=== PATIENT | male | born 1940 | race Hispanic/Latino ===

== ENCOUNTER 2019-08-26 16:22 | Emergency (ER) | payer MEDICARE ==
--- NOTE | 2019-08-26 17:36 | Emergency Department Note ---
History of Present Illnes History of Present Illness Chief Complaint: COVID PUI History of Present Illness This is a 78 year old male PATIENT IN FROM HOME WITH COMPLAINTS OF FEVER, MUSCLE ACHES, AND DIARRHEA X 1 WEEK; STATES THAT HE HAD COVID TESTING ON 08/20/2019 BUT HAS NOT GOTTEN THE RESULTS YET. PATIENT CALLED FOR RESULTS TODAY, AND DAUGHTER TOLD THEM HE HAD A "106" FEVER AND WAS TOLD TO COME TO THE ER - PATIENT TEMP ACTUALLY 100.6, AND 99.8 DURING TRIAGE. Historian: Patient, Family Member Arrival Mode: Car Electro Mechanical Technician Required: No Onset (how long ago): week(s) (1) Location: ALL OVER Quality: ACHY Radiation: Reports non-radiation Severity: moderate Onset quality: gradual Timing of current episode: intermittent Progression: waxing and waning Chronicity: new Context: Denies recent illness Relieving factors: none Exacerbating factors: none Associated symptoms: Reports denies other symptoms Past Medical/Family History Physician Review I have reviewed the patient's past medical and family history. Any updates have been documented here. Past Medical History Recent Fever: Yes Clinical Suspicion of Infectio: Yes New/Unexplained Change in Ment: No Past Medical History: Hypertension Past Surgical History: Cataract Removal Other Surgery: TURP Social History Smoking Cessation: Never Smoker Counseling Performed: No Alcohol Use: None Any Illegal Drug Use: No TB Exposure/Symptoms: No Physically hurt or threatened: No Family History Family history of heart diseas: No Other Last Tetanus: UNKNOWN Review of Systems Review of Systems Constitutional: Reports as per HPI EENTM: Reports no symptoms Cardiovascular: Reports no symptoms Respiratory: Reports as per HPI Gastrointestinal: Reports no symptoms Genitourinary: Reports no symptoms Musculoskeletal: Reports no symptoms Integumentary: Reports no symptoms Neurological: Reports no symptoms Psychological: Reports no symptoms Endocrine: Reports no symptoms Hematological/Lymphatic: Reports no symptoms Physical Exam Related Data Allergies: Coded Allergies: No Known Allergies (Unverified , 08/26/19) Triage Vital Signs Vital Signs Date Time Temp Pulse Resp B/P (MAP) Pulse Ox O2 Delivery O2 Flow Rate FiO2 08/26/19 16:43 99.8 60 18 179/76 98 Vital signs reviewed: Yes Physical Exam CONSTITUTIONAL Constitutional: Present well-developed, Present well-nourished HENT HENT: Present normocephalic, Present atraumatic, Present oropharynx clear/moist, Present nose normal HENT L/R: Present left ext ear normal, Present right ext ear normal EYES Eyes: Reports PERRL, Reports conjunctivae normal NECK Neck: Present ROM normal PULMONARY Pulmonary: Present effort normal, Present breath sounds normal CARDIOVASCULAR Cardiovascular: Present regular rhythm, Present heart sounds normal, Present capillary refill normal, Present normal rate GASTROINTESTINAL Abdominal: Present soft, Present nontender, Present bowel sounds normal GENITOURINARY Genitourinary: Present exam deferred SKIN Skin: Present warm, Present dry MUSCULOSKELETAL Musculoskeletal: Present ROM normal NEUROLOGICAL Neurological: Present alert, Present oriented x 3, Present no gross motor or sensory deficits PSYCHOLOGICAL Psychological: Present mood/affect normal, Present judgement normal Assessment & Plan Medical Decision Making MDM PT WITH NO DISTRESS, O2 SAT 98% ON RA, NORMAL VS'S. PT TO F/U WITH TESTING CENTER, SELF-QUARANTINE, PRONING, F/U PCP Assessment & Plan Final Impression: (1) Viral syndrome Depart Disposition: HOME, SELF-CARE Last Vital Signs Date Time Temp Pulse Resp B/P (MAP) Pulse Ox O2 Delivery O2 Flow Rate FiO2 08/26/19 16:43 99.8 60 18 179/76 98 NASEEM LUKE MD Aug 26, 2019 17:35
== END 2019-08-26 17:00 | disposition home or self-care (01) ==
LOC: ER 16:22
DX: R50.9 Fever, unspecified (principal); R19.7 Diarrhea, unspecified; B34.9 Viral infection, unspecified; I10 Essential (primary) hypertension
CPT/HCPCS: 99282

== ENCOUNTER 2019-09-06 17:38 | Inpatient (IN) | payer MEDICARE, OTHER ==
[~2019-09-06] VITALS: Ht 162.6 cm; Wt 64.4 kg
[~2019-09-06 17:38] MED LIST: ETOMIDATE 2 MG/ML 10 ML INJ IV ONE; MIDAZOLAM HCL 2 MG/2 ML VIAL ONE; SUCCINYLCHOLINE CHLORIDE 20 MG/ML 10ML VIAL ONE
[2019-09-06] MEDS ORDERED: SODIUM CHLORIDE 0.9% 1000ML 1,000 ML IV STA (18:31)
[2019-09-06] MEDS ORDERED: AZITHROMYCIN 500MG/NS 250 ML 250 ML IV ONE (18:45)
[2019-09-06] MEDS ORDERED: CEFTRIAXONE SOD 1 GM/NS 50 ML 50 ML IV ONE (18:45)
[2019-09-06 18:55] LABS: BASOPHILS # (AUTO) 0.1 (0.0-0.1); BASOPHILS % 0.3 % (0.0-1.0); EOSINOPHILS # (AUTO) 0.1 (0.0-0.4); EOSINOPHILS % 0.4 % (0.0-6.0); HEMATOCRIT 39.9 % (38.2-49.6); HEMOGLOBIN 12.9 g/dL (14.0-18.0); LYMPHOCYTES # (AUTO) 1.1 (1.0-3.2); MEAN CORPUSCULAR HEMOGLOBIN 26.5 pg (28-32); MEAN CORPUSCULAR HGB CONC 32.3 g/dL (31-35); MEAN CORPUSCULAR VOLUME 81.9 fL (81-99); MONOCYTES # (AUTO) 0.9 (0.2-0.8); MONOCYTES % 5.5 % (4.4-11.3); NEUTROPHILS # (AUTO) 12.9 (2.1-6.9); NEUTROPHILS % 83.9 % (38.7-80.0); PLATELET COUNT 229 x10e3/uL (140-360); RED BLOOD COUNT 4.87 x10e6/uL (4.3-5.7); RED CELL DISTRIBUTION WIDTH 13.2 % (11.7-14.4)
[2019-09-06 19:01] LABS: INR 1.04; PROTHROMBIN TIME 14.2 seconds (11.9-14.5)
[2019-09-06 19:02] LABS: PARTIAL THROMBOPLASTIN TIME 38.3 seconds (23.8-35.5)
--- NOTE | 2019-09-06 19:03 | Emergency Department Note ---
History of Present Illnes History of Present Illness Chief Complaint: COVID PUI History of Present Illness This is a 79 year old male with 5 day h/o of fever, GRIFFITH, cough and myalgias Historian: Patient, Family Member Arrival Mode: Car History limited by: language barrier Onset (how long ago): day(s) (5) Location: DIFFUSE BODY ACHES Severity: moderate Duration (how long): day(s) (5) Timing of current episode: constant Progression: worsening Context: Reports recent illness Relieving factors: none Exacerbating factors: none Associated symptoms: Reports fever/chills, Reports headaches, Reports malaise Treatments prior to arrival: none Past Medical/Family History Physician Review I have reviewed the patient's past medical and family history. Any updates have been documented here. Past Medical History Recent Fever: Yes Clinical Suspicion of Infectio: Yes New/Unexplained Change in Ment: No Past Medical History: Hypertension Past Surgical History: Cataract Removal Other Surgery: TURP Social History Smoking Cessation: Unknown if ever smoked Counseling Performed: No Alcohol Use: None Any Illegal Drug Use: No Other Any Pre-Existing Lines (PICC,: No Review of Systems Review of Systems Constitutional: Reports fever, Reports malaise, Reports weakness EENTM: Reports no symptoms Cardiovascular: Reports no symptoms Respiratory: Reports dyspnea Gastrointestinal: Reports no symptoms Genitourinary: Reports no symptoms Musculoskeletal: Reports no symptoms Integumentary: Reports no symptoms Neurological: Reports headache Psychological: Reports no symptoms Endocrine: Reports no symptoms Hematological/Lymphatic: Reports no symptoms Physical Exam Related Data Allergies: Coded Allergies: No Known Allergies (Unverified , 08/26/19) Triage Vital Signs Vital Signs Date Time Temp Pulse Resp B/P (MAP) Pulse Ox O2 Delivery O2 Flow Rate FiO2 09/06/19 17:43 98.4 67 16 146/58 88 Room Air Vital signs reviewed: Yes Physical Exam CONSTITUTIONAL Constitutional: Present well-developed, Present well-nourished, Present ill appearing HENT HENT: Present normocephalic, Present atraumatic, Present oropharynx clear/moist, Present nose normal HENT L/R: Present left ext ear normal, Present right ext ear normal EYES Eyes: Reports PERRL, Reports conjunctivae normal NECK Neck: Present ROM normal PULMONARY Pulmonary: Present effort normal, Present breath sounds normal CARDIOVASCULAR Cardiovascular: Present regular rhythm, Present heart sounds normal, Present capillary refill normal, Present normal rate GASTROINTESTINAL Abdominal: Present soft, Present nontender, Present bowel sounds normal GENITOURINARY Genitourinary: Present exam deferred SKIN Skin: Present warm, Present dry MUSCULOSKELETAL Musculoskeletal: Present ROM normal NEUROLOGICAL Neurological: Present alert, Present oriented x 3, Present no gross motor or sensory deficits PSYCHOLOGICAL Psychological: Present mood/affect normal, Present judgement normal Results Laboratory Result Diagram: 09/06/19 1847 Laboratory Laboratory Tests Test 09/06/19 18:45 09/06/19 18:30 White Blood Count 15.38 x10e3/uL (4.8-10.8) Red Blood Count 4.87 x10e6/uL (4.3-5.7) Hemoglobin 12.9 g/dL (14.0-18.0) Hematocrit 39.9 % (38.2-49.6) Mean Corpuscular Volume 81.9 fL (81-99) Mean Corpuscular Hemoglobin 26.5 pg (28-32) Mean Corpuscular Hemoglobin Concent 32.3 g/dL (31-35) Red Cell Distribution Width 13.2 % (11.7-14.4) Platelet Count 229 x10e3/uL (140-360) Neutrophils (%) (Auto) 83.9 % (38.7-80.0) Lymphocytes (%) (Auto) 7.0 % (18.0-39.1) Monocytes (%) (Auto) 5.5 % (4.4-11.3) Eosinophils (%) (Auto) 0.4 % (0.0-6.0) Basophils (%) (Auto) 0.3 % (0.0-1.0) Neutrophils # (Auto) 12.9 (2.1-6.9) Lymphocytes # (Auto) 1.1 (1.0-3.2) Monocytes # (Auto) 0.9 (0.2-0.8) Eosinophils # (Auto) 0.1 (0.0-0.4) Basophils # (Auto) 0.1 (0.0-0.1) Absolute Immature Granulocyte (auto 0.44 x10e3/uL (0-0.1) Prothrombin Time 14.2 seconds (11.9-14.5) Prothromb Time International Ratio 1.04 Activated Partial Thromboplast Time 38.3 seconds (23.8-35.5) Sodium Level 136 mmol/L (136-145) Potassium Level 3.1 mmol/L (3.5-5.1) Chloride Level 94 mmol/L (98-107) Carbon Dioxide Level 29 mmol/L (22-29) Anion Gap 16.1 mmol/L (8-16) Blood Urea Nitrogen 17 mg/dL (7-26) Creatinine 0.87 mg/dL (0.72-1.25) Estimat Glomerular Filtration Rate > 60 ML/MIN (60-) BUN/Creatinine Ratio 20 (6-25) Glucose Level 134 mg/dL (74-118) Lactic Acid Level 1.3 mmol/L (0.5-2.0) Calcium Level 9.3 mg/dL (8.4-10.2) Total Bilirubin 0.4 mg/dL (0.2-1.2) Aspartate Amino Transf (AST/SGOT) 63 IU/L (5-34) Alanine Aminotransferase (ALT/SGPT) 33 IU/L (0-55) Alkaline Phosphatase 118 IU/L (40-150) Creatine Kinase 36 IU/L (30-200) Creatine Kinase MB 1.30 ng/mL (0-5.0) Troponin I 0.013 ng/mL (0-0.300) B-Type Natriuretic Peptide 80.9 pg/mL (0-100) Total Protein 7.8 g/dL (6.5-8.1) Albumin 3.0 g/dL (3.5-5.0) Globulin 4.8 g/dL (2.3-3.5) Albumin/Globulin Ratio 0.6 (0.8-2.0) Laboratory Tests Test 09/06/19 18:45 09/06/19 18:30 White Blood Count 15.38 x10e3/uL (4.8-10.8) Red Blood Count 4.87 x10e6/uL (4.3-5.7) Hemoglobin 12.9 g/dL (14.0-18.0) Hematocrit 39.9 % (38.2-49.6) Mean Corpuscular Volume 81.9 fL (81-99) Mean Corpuscular Hemoglobin 26.5 pg (28-32) Mean Corpuscular Hemoglobin Concent 32.3 g/dL (31-35) Red Cell Distribution Width 13.2 % (11.7-14.4) Platelet Count 229 x10e3/uL (140-360) Neutrophils (%) (Auto) 83.9 % (38.7-80.0) Lymphocytes (%) (Auto) 7.0 % (18.0-39.1) Monocytes (%) (Auto) 5.5 % (4.4-11.3) Eosinophils (%) (Auto) 0.4 % (0.0-6.0) Basophils (%) (Auto) 0.3 % (0.0-1.0) Neutrophils # (Auto) 12.9 (2.1-6.9) Lymphocytes # (Auto) 1.1 (1.0-3.2) Monocytes # (Auto) 0.9 (0.2-0.8) Eosinophils # (Auto) 0.1 (0.0-0.4) Basophils # (Auto) 0.1 (0.0-0.1) Absolute Immature Granulocyte (auto 0.44 x10e3/uL (0-0.1) Imaging Imaging results reviewed: Yes Impressions [place] [address] Patient Name: SHERLYN THOMAS MR #: [id number] : 1940 Age/Sex: 79/M Req #: [id number] Adm Physician: Ordered by: NASEEM LUKE MD Report #: [id number] Location: ER Room/Bed: Procedure: [id number] DX/CHEST SINGLE (PORTABLE) Exam Date: Exam Time: REPORT STATUS: Signed EXAMINATION: CHEST SINGLE (PORTABLE) INDICATION: ^Y ^COUGH, SOB, COVID COMPARISON: None FINDINGS: AP view TUBES and LINES: None. LUNGS: Patchy airspace opacities throughout both lungs. PLEURA: No pleural effusion or pneumothorax. HEART AND MEDIASTINUM: The cardiomediastinal silhouette is unremarkable. BONES AND SOFT TISSUES: No acute osseous lesion. Soft tissues are unremarkable. UPPER ABDOMEN: No free air under the diaphragm. IMPRESSION: Patchy pulmonary airspace disease consistent with provided history of viral pneumonia. Signed by: Hollie iMller MD on 09/06/2019 8:46 PM Dictated By: HOLLIE MILLER MD 45 Transcribed By: FLORECITA on 09/06/192045 COPY TO: NASEEM LUKE MD~ Critical Care Time Total Critical Care Time (min): 31 Critcal care necessary due to: respiratory failure Critcal care time spent by me: develop tx plan w patient/surrogate, examination of patient, order/perform tx or interventions, order/review laboratory studies, order/review radiographic studies, pulse oximetry Assessment & Plan Medical Decision Making MDM 79 yom presents with dyspea and hypoxia. Diff Dx : PE, PTX, CHF, Sepsis, COVID- 19 URI infection, ACS, ARDS, airway obstruction, Lung CA. Plan to admit for oxygen monitoring for COVID-19 infection Assessment & Plan Final Impression: (1) Upper respiratory tract infection due to COVID-19 virus (2) Hypoxia Depart Disposition: ADMITTED Last Vital Signs Date Time Temp Pulse Resp B/P (MAP) Pulse Ox O2 Delivery O2 Flow Rate FiO2 09/06/19 18:48 57 16 128/77 100 09/06/19 17:43 98.4 Room Air Home Meds Unable to Obtain Active Prescriptions or Reported Meds Medications in the ED Sodium Chloride 1,000 ml @ 0 mls/hr Q0M STAT IV ; Start 09/06/19 at 18:31; Stop 09/06/19 at 18:34; Status DC Ceftriaxone Sodium 50 ml @ 100 mls/hr ONCE ONCE IV ; Start 09/06/19 at 18:45; Stop 20 at 19:14 Azithromycin 250 ml @ 200 mls/hr NOW ONCE IV ; Start 20 at 18:45; Stop 20 at 19:59 KATHY LONDON DO Sep 06, 2019 19:03
[2019-09-06 19:11] LABS: ALANINE AMINOTRANSFERASE 33 IU/L (0-55); ALBUMIN/GLOBULIN RATIO 0.6 (0.8-2.0); ALKALINE PHOSPHATASE 118 IU/L (40-150); ANION GAP 16.1 mmol/L (8-16); BLOOD UREA NITROGEN 17 mg/dL (7-26); BUN/CREATININE RATIO 20 (6-25); CALCIUM 9.3 mg/dL (8.4-10.2); CARBON DIOXIDE 29 mmol/L (22-29); CHLORIDE 94 mmol/L (98-107); CREATINE KINASE 36 IU/L (30-200); CREATININE, SERUM 0.87 mg/dL (0.72-1.25); EST GLOMERULAR FILTRATION RATE > 60 ML/MIN (60-); GLUCOSE 134 mg/dL (74-118); POTASSIUM 3.1 mmol/L (3.5-5.1); SODIUM 136 mmol/L (136-145)
[2019-09-06 19:19] LABS: B-TYPE NATRIURETIC PEPTIDE2 80.9 pg/mL (0-100)
--- NOTE | 2019-09-06 20:49 | Diagnostic Imaging Report ---
EXAMINATION: CHEST SINGLE (PORTABLE) INDICATION: ^Y ^COUGH, SOB, COVID COMPARISON: None FINDINGS: AP view TUBES and LINES: None. LUNGS: Patchy airspace opacities throughout both lungs. PLEURA: No pleural effusion or pneumothorax. HEART AND MEDIASTINUM: The cardiomediastinal silhouette is unremarkable. BONES AND SOFT TISSUES: No acute osseous lesion. Soft tissues are unremarkable. UPPER ABDOMEN: No free air under the diaphragm. IMPRESSION: Patchy pulmonary airspace disease consistent with provided history of viral pneumonia. Signed by: Hayden Mendoza MD on 09/06/2019 8:46 PM
[2019-09-07] VITALS (8 sets, daily range): BP systolic 134–186; BP diastolic 60–67
--- NOTE | 2019-09-07 | NUR ---
patient is a new admit that arrived via stretcher. patient is awake and talking. patient has been assisted into the bed. bed is in the lowest position and call light is within reach. will continue to monitor patient.
[2019-09-07] MEDS ORDERED: SODIUM CHLORIDE 0.9% 1000ML 1,000 ML ONE (00:08)
[2019-09-07] MEDS ORDERED: AZITHROMYCIN 500MG/NS 250 ML 250 ML ONE (00:09)
[2019-09-07] MEDS ORDERED: CEFEPIME 1GM/NS 0.9% 50 ML 50 ML IV ONE (00:09)
[2019-09-07 05:35] LABS: BASOPHILS # (AUTO) 0.1 (0.0-0.1); BASOPHILS % 0.4 % (0.0-1.0); EOSINOPHILS # (AUTO) 0.2 (0.0-0.4); EOSINOPHILS % 1.2 % (0.0-6.0); HEMATOCRIT 39.5 % (38.2-49.6); HEMOGLOBIN 12.6 g/dL (14.0-18.0); LYMPHOCYTES # (AUTO) 1.3 (1.0-3.2); LYMPHOCYTES % 10.3 % (18.0-39.1); MEAN CORPUSCULAR HEMOGLOBIN 26.6 pg (28-32); MEAN CORPUSCULAR HGB CONC 31.9 g/dL (31-35); MEAN CORPUSCULAR VOLUME 83.3 fL (81-99); MONOCYTES % 8.2 % (4.4-11.3); NEUTROPHILS # (AUTO) 9.4 (2.1-6.9); NEUTROPHILS % 76.2 % (38.7-80.0); PLATELET COUNT 211 x10e3/uL (140-360); RED BLOOD COUNT 4.74 x10e6/uL (4.3-5.7); RED CELL DISTRIBUTION WIDTH 13.3 % (11.7-14.4)
[2019-09-07 06:01] LABS: ALANINE AMINOTRANSFERASE 29 IU/L (0-55); ALBUMIN 2.7 g/dL (3.5-5.0); ALBUMIN/GLOBULIN RATIO 0.6 (0.8-2.0); ALKALINE PHOSPHATASE 104 IU/L (40-150); ANION GAP 14.8 mmol/L (8-16); BLOOD UREA NITROGEN 13 mg/dL (7-26); BUN/CREATININE RATIO 17 (6-25); CALCIUM 8.9 mg/dL (8.4-10.2); CARBON DIOXIDE 29 mmol/L (22-29); CHLORIDE 100 mmol/L (98-107); CREATININE, SERUM 0.77 mg/dL (0.72-1.25); EST GLOMERULAR FILTRATION RATE > 60 ML/MIN (60-); GLUCOSE 97 mg/dL (74-118); POTASSIUM 3.8 mmol/L (3.5-5.1); SODIUM 140 mmol/L (136-145)
--- NOTE | 2019-09-07 07:11 | NUR ---
patient is resting in the bed. bed is in the lowest position and call light is within reach.
--- NOTE | 2019-09-07 07:52 | NUR ---
PATIENT IN BED RESTING WITH NO S/S OF DISTRESS. O2 IN PLACE VIA N/C. DENIED PAIN AT THIS TIME. BED IN LOWER POSITION, CALL LIGHT AT REACH.
[2019-09-07] MEDS ORDERED: IPRATROPIUM BROMIDE INHALER 12.9 GM INH INH PRN (09:00)
[2019-09-07] MEDS ORDERED: ALBUTEROL SULFATE HFA 8GM INHALATION AEROSOL INH PRN (09:00)
[2019-09-07] MEDS ORDERED: DEXAMETHASONE SOD PHOS INJ 4 MG/ML VIAL IV SCH (09:00)
--- NOTE | 2019-09-07 09:34 | History and Physical ---
CHIEF COMPLAINT: Fever, headaches, cough, and generalized body ache and pain for the past week. The patient came to the hospital for evaluation. HISTORY OF PRESENT ILLNESS: The patient is a 79-year-old male, has hypertension and history of enlarged prostate with previous TURP, came into the hospital with increasing shortness of breath and headaches along with fever and body ache and pain for the past five days. The patient came in, brought in by family. The patient has also had diffuse generalized weakness. The patient is admitted. He had test positive for COVID-19 viral. His WBC was 15.3,000. The patient also has low sodium level in the emergency room. The patient is admitted. The coronavirus PCR is positive for infection. PAST MEDICAL HISTORY: Hypertension, enlarged prostate, status post TURP. SOCIAL HISTORY: The patient does not smoke or use alcohol. No regular drugs. ALLERGIES: TO NO KNOWN ALLERGIES. HOME MEDICATIONS: List is not yet available. PHYSICAL EXAMINATION: VITAL SIGNS: Temperature is 97, currently, blood pressure 178/60, pulse rate is 67, respirations 22. GENERAL: The patient is not in acute distress. HEENT: Normocephalic and atraumatic. Pupils reactive. Anicteric. NECK: Supple grossly. PULMONARY: Diminished breath sounds bilaterally with coarses at the bases. CARDIOVASCULAR: S1, S2. Regular rate and rhythm. ABDOMEN: Soft. Positive bowel sounds. Grossly nontender, non-distention. EXTREMITIES: No gross cyanosis or edema. NEUROLOGIC: No gross focal deficit. LABORATORY DATA: WBC is 15.4, hemoglobin 12.9, hematocrit 39.9, and platelets is 229. Chemistry; sodium 136, potassium 3.1, chloride 94, bicarb 29, BUN is 17 and creatinine is 0.8, glucose is 134. Coagulation INR is 1.09. Serology rapid test, coronavirus PCR positive. Chest x-ray show patchy pulmonary airspace disease consistent with viral pneumonia. IMPRESSION: 1. COVID-19 pneumonia associated with respiratory insufficiency/respiratory failure. 2. Sepsis without shock. 3. Possible superimposed pneumonia. 4. Leukocytosis. 5. Hypertensive urgency. PLAN: Control blood pressure. Steroids. COVID-19 pneumonia treatment protocol. Consultation with Dr. Rock Merrill and Dr. Kashmir Long. The patient will be watched very carefully on oxygen support. MD FRANC Brock/ALE /[id number]
[2019-09-07] MEDS ORDERED: NIFEDIPINE CR 30 MG TAB PO ONE (10:00)
[2019-09-07] MEDS: ASCORBIC ACID 500 MG TAB PO SCH ×2 (10:05→17:11)
[2019-09-07] MEDS: LISINOPRIL 2.5 MG TAB PO SCH ×2 (10:05→17:12)
[2019-09-07] MEDS: CHOLECALCIFEROL 400 UNIT TAB PO SCH (10:05)
[2019-09-07] MEDS: ZINC SULFATE 220 MG CAP PO SCH ×2 (10:05→17:11)
[2019-09-07] MEDS: DEXAMETHASONE PHOS 4MG/ML 5ML MULTIDOSE VIAL IV SCH (10:45)
--- NOTE | 2019-09-07 11:01 | NUR ---
MD IN TO SEE PATIENT. NOTIFIED OF PATIENT ELEVATED B/P. NEW ORDER RECEIVED AND IMPLEMENTED. WILL CLOSELY MONITOR.
[2019-09-07] MEDS: HYDRALAZINE HCL 20 MG/ML VIAL IV PRN (12:13)
--- NOTE | 2019-09-07 13:20 | NUR ---
PATIENT NOTED WITH B/P OF 174/67. PRN HYDRALAZINE GIVEN, B/P RECHECKED WITH THE READING OF 148/62. WILL CONTINUE TO MONITOR.
[2019-09-07] MEDS ORDERED: BENZONATATE 100 MG CAP PO PRN (15:00)
[2019-09-07] MEDS ORDERED: CLONIDINE HCL 0.1 MG TAB PO PRN (15:00)
[2019-09-07] MEDS: GUAIFENESIN/CODEINE 10 ML CUP PO PRN (15:56)
[2019-09-07] MEDS: ACETAMINOPHEN 325 MG TAB PO PRN (15:56)
--- NOTE | 2019-09-07 17:36 | NUR ---
PATIENT NOTED WITH COUGH. MD NOTIFIED. NEW ORDER RECEIVED AND IMPLEMENTED, NO MORE COUGHING OBSERVED. WILL CLOSELY MONITOR.
--- NOTE | 2019-09-07 18:07 | Consultation ---
DATE OF CONSULTATION: HISTORY OF PRESENT ILLNESS: Mr. Avendano is coming to the hospital with shortness of breath for 5 days, not feeling well. The patient was admitted. He is currently alert, oriented, on 2 L, doing much better. PAST MEDICAL HISTORY: Hypertension. ALLERGIES: NKA. SOCIAL HISTORY: Otherwise unremarkable. REVIEW OF SYSTEMS: HEENT: Negative. PULMONARY: Negative. CARDIAC: Negative. Except the shortness of breath and cough he denies any. PHYSICAL EXAMINATION: GENERAL: He is currently alert, oriented. Does not seem to be in any acute distress. VITAL SIGNS: Stable, afebrile. HEENT: He is not icteric. NECK: Supple. CHEST: Clear. HEART: S1, S2. No murmur. ABDOMEN: Soft. IMPRESSION: Coronavirus disease-19 with superimposed bacterial pneumonia, hypertension, hypoxemia. We will start him on dexamethasone 6 mg daily, oxygen as needed, Rocephin 1 g daily for 5 days. Azithromycin daily for 3 days. Continue all his home medication. Lovenox 0.5 mg/kg q.12 hours. Follow up. MD CHENG Brooks/ALE /[id number]
--- NOTE | 2019-09-07 18:38 | Consultation ---
DATE OF CONSULTATION: Pulmonary Critical Care Consultation CHIEF COMPLAINT: Some dyspnea and cough. HISTORY OF PRESENT ILLNESS: The patient is a 79-year-old man. He has a history of hypertension and enlarged prostate. He came in complaining of fevers and body aches. He also had some generalized weakness. He did not complain of cough or chest pain. PAST MEDICAL HISTORY: 1. Hypertension. 2. Prostatic hypertrophy. PAST SURGICAL HISTORY: Status post transurethral prostatectomy. ALLERGIES: NO KNOWN DRUG ALLERGIES. SOCIAL HISTORY: The patient is not an active smoker or drinker. FAMILY HISTORY: Family history is noncontributory. REVIEW OF SYSTEMS: The patient does not complain of fevers. He notes headaches and some dyspnea. He notes fatigue. He does not complain of chest pain. He has minimal cough. He has no abdominal pain. He is not complaining of nausea or vomiting. He has no leg edema. PHYSICAL EXAMINATION: VITAL SIGNS: The patient is afebrile. The blood pressure is 174/67 and the saturation is 95% on 2 L. HEENT: Shows no facial swelling or erythema. CARDIAC: Reveals regular rate and rhythm with normal S1 and S2. LUNGS: Auscultation of lungs shows clear breath sounds bilaterally. There is no wheezing. ABDOMEN: Soft and nontender. There is no rebound or guarding. EXTREMITIES: Shows no leg edema or calf tenderness. There is no cyanosis or clubbing. SKIN: Shows no rashes. LABORATORY DATA: White blood cell count is 12.4 and hemoglobin is 12.6. Platelet count is 211. The BUN to creatinine ratio is normal. Other electrolytes are within normal limits. Albumin is 2.7. RADIOGRAPHIC DATA: Chest x-ray shows bilateral airspace disease. IMPRESSION: 1. Viral pneumonia and COVID-19 infection. 2. Prostatic hypertrophy. 3. Hypertension. PLAN: 1. Continue current antibiotics. 2. Dexamethasone. 3. Lovenox to prevent DVT prophylaxis. 4. Bronchodilators as needed. 5. Oxygen as needed. Dixon Merrill MD [facility] /[id number]
--- NOTE | 2019-09-07 19:26 | NUR ---
BED SIDE SHIFT REPORT GIVEN TO ON COMING NURSE.
[2019-09-07] MEDS: TAMSULOSIN HCL 0.4 MG CAP PO SCH (21:08)
--- NOTE | 2019-09-07 21:16 | NUR ---
Notified Dr Merrill regarding patient 02 sat 84 to 86% on 02 NC 4L, 02 increased to 5L NC 02 sat remains 84 to 86 %. Patient placed on non-rebreather, 02 sat 93%. New orders received. Will continue to monitor.
[2019-09-07] MEDS: ENOXAPARIN SOD INJ 40 MG/0.4 ML SYR SC SCH (21:40)
[2019-09-07 21:50] LABS: ABG PCO2 33 mmHg (35-45); ABG PH 7.51 (7.35-7.45); ABG PO2 92 mmHg (80-105)
[2019-09-07 21:51] LABS: ABG HCO3 26 mmol/L (22-26)
--- NOTE | 2019-09-07 22:47 | Diagnostic Imaging Report ---
EXAMINATION: CHEST SINGLE (PORTABLE) INDICATION: Low O2 sat COMPARISON: Chest x-ray 09/06/2019 FINDINGS: TUBES and LINES: None. LUNGS: Normal lung volumes. Multifocal patchy lung haziness . PLEURA: No pleural effusion or pneumothorax. HEART AND MEDIASTINUM: Abrupt rightward tracheal deviation. The cardiomediastinal silhouette is unremarkable. BONES AND SOFT TISSUES: No acute osseous lesion. Soft tissues are unremarkable. UPPER ABDOMEN: No free air under the diaphragm. IMPRESSION: Multifocal patchy lung haziness concerning for multifocal pneumonia, possibly viral. Abrupt rightward tracheal deviation can be due to superior mediastinal mass or aortic aneurysm, recommend chest CT with contrast when clinically optimal. Signed by: Angel Stover DO on 09/07/2019 10:43 PM
--- NOTE | 2019-09-07 23:29 | NUR ---
Notified Dr Merrill regarding CXR and ABG results. Order to transfer to ICU. Notified Dr Merrill possibly no ICU bed available, hold patient and monitor and notify [facility] regarding order for ICU. [facility] notified regarding order for ICU. No bed available at this time. Will continue to monitor patient.
[2019-09-08] VITALS (19 sets, daily range): BP systolic 94–166; BP diastolic 40–129
[2019-09-08] MEDS: CEFTRIAXONE SOD 1 GM/NS 50 ML 50 ML IV SCH (01:00)
[2019-09-08] MEDS ORDERED: SODIUM CHLORIDE 0.9% 250ML 250 ML ONE (01:07)
[2019-09-08] MEDS: AZITHROMYCIN 500MG/NS 250 ML 250 ML IV SCH (02:00)
[2019-09-08] MEDS: ACETAMINOPHEN 325 MG TAB PO PRN (02:00)
--- NOTE | 2019-09-08 02:15 | NUR ---
16F coude catheter placed, 200 cc yellow urine returned. Tolerated well. Will continue to monitor.
--- NOTE | 2019-09-08 02:30 | NUR ---
Dr Merrill called to check status.New order for vapotherm. Patient to be transferred to ICU and placed on vapotherm, notified no ICU bed available at this time. Place on portable vapotherm until transfer.
[2019-09-08 05:40] LABS: BASOPHILS # (AUTO) 0.1 (0.0-0.1); BASOPHILS % 0.4 % (0.0-1.0); HEMOGLOBIN 11.9 g/dL (14.0-18.0); MEAN CORPUSCULAR HEMOGLOBIN 26.5 pg (28-32); MEAN CORPUSCULAR HGB CONC 33.1 g/dL (31-35); MONOCYTES # (AUTO) 1.3 (0.2-0.8); MONOCYTES % 9.3 % (4.4-11.3); NEUTROPHILS # (AUTO) 11.1 (2.1-6.9); NEUTROPHILS % 79.6 % (38.7-80.0); PLATELET COUNT 237 x10e3/uL (140-360); RED BLOOD COUNT 4.49 x10e6/uL (4.3-5.7); RED CELL DISTRIBUTION WIDTH 13.3 % (11.7-14.4)
--- NOTE | 2019-09-08 05:45 | NUR ---
Report given to ICU nurse. All personal belongings gathered and patient informed via language line of staff field engineer to ICU.
[2019-09-08 05:50] LABS: MEAN CORPUSCULAR VOLUME 80.2 fL (81-99)
[2019-09-08] MEDS: NIFEDIPINE CR 30 MG TAB PO SCH (06:00)
--- NOTE | 2019-09-08 06:20 | NUR ---
Patient transferred to ICU bed 12. Patient A&Ox3, on non-rebreather, geller to bedside drainage. No issues or concerns noted. All personal belongings transferred with patient.
[2019-09-08 07:04] LABS: ANION GAP 14.3 mmol/L (8-16); BLOOD UREA NITROGEN 16 mg/dL (7-26); BUN/CREATININE RATIO 21 (6-25); CALCIUM 8.4 mg/dL (8.4-10.2); CARBON DIOXIDE 25 mmol/L (22-29); CHLORIDE 99 mmol/L (98-107); CREATININE, SERUM 0.75 mg/dL (0.72-1.25); EST GLOMERULAR FILTRATION RATE > 60 ML/MIN (60-); GLUCOSE 123 mg/dL (74-118); POTASSIUM 3.3 mmol/L (3.5-5.1); SODIUM 135 mmol/L (136-145)
[2019-09-08 07:20] LABS: PHOSPHORUS 3.9 MG/DL (2.3-4.7)
[2019-09-08 07:40] LABS: THYROID STIMULATING HORMONE 0.261 uIU/mL (0.350-4.940)
[2019-09-08] MEDS: CHOLECALCIFEROL 400 UNIT TAB PO SCH (09:08)
[2019-09-08] MEDS: ENOXAPARIN SOD INJ 40 MG/0.4 ML SYR SC SCH ×2 (09:08→20:22)
[2019-09-08] MEDS: ASCORBIC ACID 500 MG TAB PO SCH ×2 (09:08→17:00)
[2019-09-08] MEDS: ZINC SULFATE 220 MG CAP PO SCH ×2 (09:36→17:00)
[2019-09-08] MEDS: DEXAMETHASONE PHOS 4MG/ML 5ML MULTIDOSE VIAL IV SCH (09:36)
[2019-09-08] MEDS: LISINOPRIL 2.5 MG TAB PO SCH ×2 (09:36→17:00)
--- NOTE | 2019-09-08 10:00 | Progress Note ---
DATE: Pulmonary Critical Care Progress Note SUBJECTIVE: The patient had more desaturations last night. The patient's oxygen was increased to 100%. He was subsequently transferred to the Intensive Care Unit. He was started on Vapotherm. This morning, he is complaining about the Herrera. He says it is uncomfortable. He does not complain of fever or chest pain. PHYSICAL EXAMINATION: VITAL SIGNS: Blood pressure is 128/58 and saturation is now 93% on a Vapotherm. He is breathing in the mid 20s. HEENT: Shows no facial swelling or erythema. CARDIAC: Reveals regular rate and rhythm with normal S1, S2. LUNGS: Auscultation of lungs reveals crackles at the bases. There is no wheezing. ABDOMEN: Soft and nontender. There is no rebound or guarding. EXTREMITIES: Shows no leg edema or calf tenderness. There is no cyanosis or clubbing. SKIN: Shows no rashes. LABORATORY DATA: White blood cell count is 13.9, hemoglobin is 11.9, and platelet count is 237. The BUN to creatinine ratio is 16 to 0.75 and the potassium is 3.3. The other electrolytes are within normal limits. The albumin is 2.7. Blood gases, 7.5 with CO2 of 33, and O2 of 92 and carbon dioxide of 26. RADIOGRAPHIC DATA: Chest x-ray shows bilateral infiltrates. IMPRESSION: 1. COVID-19, viral pneumonia. 2. Prostatic hypertrophy. 3. Hypertension. 4. Tracheal deviation on chest x-ray of unclear significance. PLAN: 1. Continue current antibiotics. 2. Lovenox. 3. Dexamethasone. 4. Evaluate for remdesivir. 5. Continue current antihypertensive regimen. 6. Echocardiogram. 7. Case discussed with nursing staff, Respiratory, Infectious Disease, Internal Medicine. Greater than 35 minutes in direct critical care time. MD TARUN Viera/ALE /[id number]
[2019-09-08] MEDS ORDERED: DEXMEDETOMIDINE 200MCG/NS 50ML 50 ML IV PRN ×2 (13:00→18:30)
[2019-09-08] MEDS ORDERED: POTASSIUM CHLORIDE 20MEQ/100ML 100 ML IV ONE (15:30)
--- NOTE | 2019-09-08 19:24 | NUR ---
Pt complaining about geller catheter to Dr. Wale Merrill. MD gave orders to remove. Patient becoming increasingly confused, pulling off vapotherm oxygen and trying to get out of bed multiple times despite frequent reorientation. Orders given for precedex drip and restraints. Orders given for potassium replacement, and reinsert geller if needed due to retention.
[2019-09-08] MEDS: TAMSULOSIN HCL 0.4 MG CAP PO SCH (20:22)
[2019-09-09] VITALS (23 sets, daily range): BP systolic 88–163; BP diastolic 38–74
[2019-09-09] MEDS: CEFTRIAXONE SOD 1 GM/NS 50 ML 50 ML IV SCH (00:08)
[2019-09-09] MEDS: AZITHROMYCIN 500MG/NS 250 ML 250 ML IV SCH (01:15)
[2019-09-09] MEDS: NIFEDIPINE CR 30 MG TAB PO SCH (04:36)
[2019-09-09 06:23] LABS: BASOPHILS % 0.2 % (0.0-1.0); HEMATOCRIT 37.7 % (38.2-49.6); HEMOGLOBIN 12.3 g/dL (14.0-18.0); LYMPHOCYTES % 5.4 % (18.0-39.1); MEAN CORPUSCULAR HEMOGLOBIN 26.8 pg (28-32); MEAN CORPUSCULAR HGB CONC 32.6 g/dL (31-35); MEAN CORPUSCULAR VOLUME 82.1 fL (81-99); MONOCYTES # (AUTO) 1.4 (0.2-0.8); MONOCYTES % 7.8 % (4.4-11.3); NEUTROPHILS # (AUTO) 15.3 (2.1-6.9); NEUTROPHILS % 83.2 % (38.7-80.0); PLATELET COUNT 304 x10e3/uL (140-360); RED BLOOD COUNT 4.59 x10e6/uL (4.3-5.7); RED CELL DISTRIBUTION WIDTH 13.2 % (11.7-14.4)
[2019-09-09 06:35] LABS: ALANINE AMINOTRANSFERASE 63 IU/L (0-55); ALBUMIN 2.2 g/dL (3.5-5.0); ALBUMIN/GLOBULIN RATIO 0.5 (0.8-2.0); ALKALINE PHOSPHATASE 111 IU/L (40-150); ANION GAP 12.9 mmol/L (8-16); BUN/CREATININE RATIO 36 (6-25); CALCIUM 8.4 mg/dL (8.4-10.2); CARBON DIOXIDE 26 mmol/L (22-29); CHLORIDE 101 mmol/L (98-107); CREATININE, SERUM 0.83 mg/dL (0.72-1.25); EST GLOMERULAR FILTRATION RATE > 60 ML/MIN (60-); GLUCOSE 134 mg/dL (74-118); POTASSIUM 3.9 mmol/L (3.5-5.1); SODIUM 136 mmol/L (136-145)
[2019-09-09] MEDS: DEXMEDETOMIDINE 200MCG/NS 50ML 50 ML IV PRN ×3 (06:49→11:10)
[2019-09-09 06:52] LABS: BLOOD UREA NITROGEN 30 mg/dL (7-26)
--- NOTE | 2019-09-09 07:06 | NUR ---
patient remains in intensive care unit. The patient's oxygen was increased to 100%. He was subsequently transferred to the Intensive Care Unit. He was started on Vapotherm. family with unrealistic expectation they are aware that patient is extremely sick This morning, he is complaining about the Herrera. He says it is uncomfortable. He does not complain of fever or chest pain. PHYSICAL EXAMINATION: VITAL SIGNS: Blood pressure is 128/58 and saturation is now 93% on a Vapotherm. He is breathing in the mid 20s. HEENT: Shows no facial swelling or erythema. CARDIAC: Reveals regular rate and rhythm with normal S1, S2. LUNGS: Auscultation of lungs reveals crackles at the bases. There is no wheezing. ABDOMEN: Soft and nontender. There is no rebound or guarding. EXTREMITIES: Shows no leg edema or calf tenderness. There is no cyanosis or clubbing. SKIN: Shows no rashes. LABORATORY DATA: White blood cell count is 13.9, hemoglobin is 11.9, and platelet count is 237. The BUN to creatinine ratio is 16 to 0.75 and the potassium is 3.3. The other electrolytes are within normal limits. The albumin is 2.7. Blood gases, 7.5 with CO2 of 33, and O2 of 92 and carbon dioxide of 26. RADIOGRAPHIC DATA: Chest x-ray shows bilateral infiltrates. IMPRESSION: 1. COVID-19, viral pneumonia. 2. Prostatic hypertrophy. 3. Hypertension. 4. Tracheal deviation on chest x-ray of unclear significance. [id number]
[2019-09-09] MEDS: ASCORBIC ACID 500 MG TAB PO SCH ×2 (08:31→18:16)
[2019-09-09] MEDS: LISINOPRIL 2.5 MG TAB PO SCH ×2 (08:31→18:16)
[2019-09-09] MEDS: ENOXAPARIN SOD INJ 40 MG/0.4 ML SYR SC SCH ×2 (08:31→21:23)
[2019-09-09] MEDS: CHOLECALCIFEROL 400 UNIT TAB PO SCH (08:31)
--- NOTE | 2019-09-09 08:43 | Diagnostic Imaging Report ---
EXAMINATION: CHEST SINGLE (PORTABLE) INDICATION: Viral pneumonia COMPARISON: Chest radiograph 09/07/2019 FINDINGS: LINES/TUBES:EKG leads overlie the chest. LUNGS:The lungs are moderately inflated. Unchanged bilateral patchy opacities. PLEURA:No pleural effusion or pneumothorax. MEDIASTINUM:The cardiomediastinal silhouette appears unchanged in size and shape. BONES/SOFT TISSUES:No acute osseous injury. ABDOMEN:No free air under the diaphragm. IMPRESSION: No significant interval change. Signed by: Rufus Linton MD on 09/09/2019 8:40 AM
[2019-09-09] MEDS: ZINC SULFATE 220 MG CAP PO SCH ×2 (09:00→18:16)
[2019-09-09] MEDS: DEXAMETHASONE PHOS 4MG/ML 5ML MULTIDOSE VIAL IV SCH (11:11)
--- NOTE | 2019-09-09 15:26 | Progress Note ---
DATE: SUBJECTIVE: The patient is feeling a little better. He has less dyspnea and less cough. He is able to stand and transfer by himself. He is off the Precedex. His Vapotherm was decreased to 90% and 35 L. PHYSICAL EXAMINATION: VITAL SIGNS: Blood pressure is 124/50 and the saturation is 94% on 35 L with 90% FiO2, heart rate is 50 to 60. HEENT: Shows no facial swelling or erythema. CARDIAC: Reveals regular rate and rhythm with normal S1, S2. LUNGS: Auscultation of lungs reveals rhonchorous breath sounds bilaterally. There is no wheezing. ABDOMEN: Soft and nontender. There is no rebound or guarding. EXTREMITIES: Shows no leg edema or calf tenderness. There is no cyanosis or clubbing. SKIN: Shows no rashes. NEUROLOGICAL: Shows no focal abnormalities. LABORATORY DATA: White blood cell count is 18.4 and hemoglobin is 12.3, the platelet count is 304. BUN to creatinine ratio is 30 to 0.83. Other electrolytes are within normal limits. Albumin is 2.2. White blood cell count is 18.4 and hemoglobin is 12.3. The platelet count is 304. RADIOGRAPHIC DATA: Chest x-ray shows no active disease, shows bilateral pulmonary infiltrates. IMPRESSION: 1. Acute respiratory failure. 2. COVID-19 and viral pneumonia. 3. Hypertension. 4. Prostatic hypertrophy. 5. Tracheal deviation on chest x-ray of unclear significance. PLAN: 1. Continue to wean Vapotherm. 2. Lovenox. 3. Dexamethasone. 4. We will obtain CT scan once patient more stable. 5. Await results of echocardiogram. 6. Continue physical therapy. Dixon Merrill MD [facility]/ROMULOL /[id number]
--- NOTE | 2019-09-09 17:21 | Progress Note ---
DATE: SUBJECTIVE: Mr. Avendano is doing better today. He is still in ICU, but up in the chair, is on high-flow nasal cannula. PHYSICAL EXAMINATION: HEENT: He is not icteric. NECK: Supple. CHEST: Crackles bilateral. HEART: S1 and S2. ABDOMEN: Soft. IMPRESSION: COVID-19. To finish 3 days of azithromycin, five days of Rocephin, on dexamethasone to finish 10 days. Continue Lovenox as ordered 0.5 mg/kg q.12 hours. Can leave ICU once oxygenation is improved. MD CHENG Brooks/MODL /[id number]
[2019-09-09] MEDS ORDERED: ENOXAPARIN SOD INJ 40 MG/0.4 ML SYR SC SCH (21:00)
[2019-09-09] MEDS: TAMSULOSIN HCL 0.4 MG CAP PO SCH (21:23)
[2019-09-10] VITALS (19 sets, daily range): BP systolic 127–158; BP diastolic 50–97
[2019-09-10] MEDS: CEFTRIAXONE SOD 1 GM/NS 50 ML 50 ML IV SCH (01:00)
[2019-09-10] MEDS: AZITHROMYCIN 500MG/NS 250 ML 250 ML IV SCH (02:00)
[2019-09-10 05:49] LABS: BASOPHILS # (AUTO) 0.1 (0.0-0.1); BASOPHILS % 0.4 % (0.0-1.0); HEMATOCRIT 37.8 % (38.2-49.6); LYMPHOCYTES % 4.7 % (18.0-39.1); MEAN CORPUSCULAR HEMOGLOBIN 26.2 pg (28-32); MEAN CORPUSCULAR HGB CONC 31.7 g/dL (31-35); MEAN CORPUSCULAR VOLUME 82.5 fL (81-99); MONOCYTES # (AUTO) 1.9 (0.2-0.8); MONOCYTES % 9.3 % (4.4-11.3); NEUTROPHILS # (AUTO) 16.7 (2.1-6.9); NEUTROPHILS % 81.6 % (38.7-80.0); PLATELET COUNT 346 x10e3/uL (140-360); RED BLOOD COUNT 4.58 x10e6/uL (4.3-5.7); RED CELL DISTRIBUTION WIDTH 13.4 % (11.7-14.4)
[2019-09-10] MEDS: NIFEDIPINE CR 30 MG TAB PO SCH (05:55)
[2019-09-10] MEDS: ACETAMINOPHEN 325 MG TAB PO PRN ×2 (05:55→09:49)
--- NOTE | 2019-09-10 08:23 | Diagnostic Imaging Report ---
Examination: Single AP view of the chest. COMPARISON: 09/09/2019 INDICATION: Respiratory failure DISCUSSION: The lungs remain reasonably well inflated. When accounting for differences in technique, no appreciable interval change in patchy bilateral consolidations. No pleural effusion or pneumothorax. Cardiomediastinal contour is stable with rightward tracheal deviation. No acute osseous abnormalities. IMPRESSION: Stable findings of multifocal pneumonia. Signed by: Dr. Rock Ibrahim M.D. on 09/10/2019 8:20 AM
[2019-09-10 08:34] LABS: ALANINE AMINOTRANSFERASE 61 IU/L (0-55); ALBUMIN 2.6 g/dL (3.5-5.0); ALBUMIN/GLOBULIN RATIO 0.6 (0.8-2.0); ALKALINE PHOSPHATASE 140 IU/L (40-150); ANION GAP 13.5 mmol/L (8-16); BLOOD UREA NITROGEN 32 mg/dL (7-26); BUN/CREATININE RATIO 41 (6-25); CALCIUM 8.6 mg/dL (8.4-10.2); CARBON DIOXIDE 25 mmol/L (22-29); CHLORIDE 105 mmol/L (98-107); CREATININE, SERUM 0.79 mg/dL (0.72-1.25); EST GLOMERULAR FILTRATION RATE > 60 ML/MIN (60-); GLUCOSE 111 mg/dL (74-118); POTASSIUM 3.5 mmol/L (3.5-5.1); SODIUM 140 mmol/L (136-145)
[2019-09-10] MEDS: LISINOPRIL 2.5 MG TAB PO SCH ×2 (08:34→17:44)
[2019-09-10] MEDS: CHOLECALCIFEROL 400 UNIT TAB PO SCH (08:34)
[2019-09-10] MEDS: ENOXAPARIN SOD INJ 40 MG/0.4 ML SYR SC SCH ×2 (08:35→22:17)
[2019-09-10] MEDS: ASCORBIC ACID 500 MG TAB PO SCH ×2 (08:35→17:44)
[2019-09-10] MEDS: ZINC SULFATE 220 MG CAP PO SCH ×2 (08:35→17:44)
[2019-09-10] MEDS: DEXAMETHASONE PHOS 4MG/ML 6 MG in SODIUM CHLORIDE 0.9% 50ML 50 ML IV SCH (09:49)
[2019-09-10 10:28] LABS: BAND NEUTROPHILS % (MANUAL) 6 %; LYMPHOCYTES % (MANUAL) 8 % (19-48); MONOCYTES % (MANUAL) 5 % (3.4-9.0); NEUTROPHILS % (MANUAL) 81 % (40-74)
[2019-09-10] MEDS ORDERED: VANCOMYCIN 1GM/NS 250 ML 250 ML IV SCH (12:45)
[2019-09-10] MEDS: GUAIFENESIN/CODEINE 10 ML CUP PO PRN (12:54)
--- NOTE | 2019-09-10 12:57 | Progress Note ---
DATE: SUBJECTIVE: The patient has had difficulty sleeping. He also complains of some headaches. He continues on Vapotherm. PHYSICAL EXAMINATION: VITAL SIGNS: The patient is afebrile. The blood pressure is 158/70, saturation is 92% on Vapotherm at 40 L and 95%. HEENT: Shows no facial swelling or erythema. CARDIAC: Reveals regular rate and rhythm with normal S1, S2. LUNGS: Auscultation of lungs reveals rhonchorous breath sounds bilaterally. There is no wheezing. ABDOMEN: Soft, nontender. There is no rebound or guarding. EXTREMITIES: Shows no leg edema or calf tenderness. There is no cyanosis or clubbing. SKIN: Shows no rashes. NEUROLOGICAL: Shows no focal abnormalities. LABORATORY DATA: White blood cell count is 20.4 and hemoglobin is 12. The platelet count is 346. The BUN to creatinine ratio is 32 to 0.8, and the albumin is 2.6. RADIOGRAPHIC DATA: Chest x-ray shows bilateral infiltrates. IMPRESSION: 1. Acute respiratory failure. 2. COVID-19 and viral pneumonia. 3. Acute kidney injury. 4. Prostatic hypertrophy. 5. Hypertension. 6. A tracheal deviation on chest x-ray of unclear significance. PLAN: 1. Continue Precedex. 2. Complete dexamethasone. 3. Lovenox. 4. Wean Vapotherm as tolerated. 5. Await results of echocardiogram. 6. Low-dose Junior for headaches. 7. Continue antibiotics. Dixon Merrill MD [facility]/ALE /[id number]
[2019-09-10] MEDS: MEROPENEM 1GM 100 ML IV SCH ×2 (14:24→22:17)
[2019-09-10] MEDS: TAMSULOSIN HCL 0.4 MG CAP PO SCH (22:17)
[2019-09-10] MEDS: SERTRALINE HCL 50 MG TAB PO SCH (22:17)
[2019-09-10] MEDS: HYDROCODONE/APAP 5MG-325MG TAB PO PRN (22:18)
[2019-09-11] VITALS (21 sets, daily range): BP systolic 126–154; BP diastolic 63–82
[2019-09-11] MEDS: AZITHROMYCIN 500MG/NS 250 ML 250 ML IV SCH (01:17)
[2019-09-11 05:15] LABS: BASOPHILS # (AUTO) 0.1 (0.0-0.1); BASOPHILS % 0.4 % (0.0-1.0); HEMATOCRIT 36.8 % (38.2-49.6); HEMOGLOBIN 11.5 g/dL (14.0-18.0); LYMPHOCYTES # (AUTO) 0.8 (1.0-3.2); LYMPHOCYTES % 3.5 % (18.0-39.1); MEAN CORPUSCULAR HEMOGLOBIN 26.1 pg (28-32); MEAN CORPUSCULAR HGB CONC 31.3 g/dL (31-35); MEAN CORPUSCULAR VOLUME 83.6 fL (81-99); MONOCYTES # (AUTO) 1.6 (0.2-0.8); MONOCYTES % 6.8 % (4.4-11.3); NEUTROPHILS # (AUTO) 19.7 (2.1-6.9); PLATELET COUNT 366 x10e3/uL (140-360); RED CELL DISTRIBUTION WIDTH 13.8 % (11.7-14.4)
[2019-09-11] MEDS: MEROPENEM 1GM 100 ML IV SCH (06:22)
[2019-09-11] MEDS: NIFEDIPINE CR 30 MG TAB PO SCH (06:23)
[2019-09-11 07:12] LABS: ALANINE AMINOTRANSFERASE 84 IU/L (0-55); ALBUMIN 2.3 g/dL (3.5-5.0); ALBUMIN/GLOBULIN RATIO 0.6 (0.8-2.0); ALKALINE PHOSPHATASE 142 IU/L (40-150); ANION GAP 13.7 mmol/L (8-16); BLOOD UREA NITROGEN 24 mg/dL (7-26); BUN/CREATININE RATIO 36 (6-25); CALCIUM 8.1 mg/dL (8.4-10.2); CARBON DIOXIDE 23 mmol/L (22-29); CHLORIDE 113 mmol/L (98-107); CREATININE, SERUM 0.66 mg/dL (0.72-1.25); EST GLOMERULAR FILTRATION RATE > 60 ML/MIN (60-); GLUCOSE 103 mg/dL (74-118); POTASSIUM 3.7 mmol/L (3.5-5.1); SODIUM 146 mmol/L (136-145)
[2019-09-11 07:53] LABS: LYMPHOCYTES % (MANUAL) 3 % (19-48); MONOCYTES % (MANUAL) 4 % (3.4-9.0); MYELOCYTES % (MANUAL) 1 % (0-0); NEUTROPHILS % (MANUAL) 92 % (40-74); PLATELET ESTIMATE SLIGHTLY INCREASED; PLATELET MORPHOLOGY COMMENT NORMAL; RBC MORPHOLOGY COMMENT NORMAL
[2019-09-11] MEDS: ASCORBIC ACID 500 MG TAB PO SCH ×2 (08:48→21:03)
[2019-09-11] MEDS: CHOLECALCIFEROL 400 UNIT TAB PO SCH (08:48)
[2019-09-11] MEDS: LISINOPRIL 2.5 MG TAB PO SCH ×2 (08:48→19:04)
[2019-09-11] MEDS: ZINC SULFATE 220 MG CAP PO SCH ×2 (08:53→17:00)
[2019-09-11] MEDS: ENOXAPARIN SOD INJ 40 MG/0.4 ML SYR SC SCH ×2 (08:53→21:03)
[2019-09-11] MEDS: ACETAMINOPHEN 325 MG TAB PO PRN (09:15)
--- NOTE | 2019-09-11 10:15 | Progress Note ---
DATE: Pulmonary Critical Care Progress Note SUBJECTIVE: The patient is afebrile. He still requires Vapotherm at 35 L with 90%. PHYSICAL EXAMINATION: VITAL SIGNS: Blood pressure is 157/70, saturation is 100% and the pulse is 82. HEENT: No facial swelling or erythema. CARDIAC: Regular rate and rhythm with normal S1, S2. LUNGS: Auscultation of lungs reveals crackles at the bases. There is no wheezing. ABDOMEN: Soft and nontender. There is no rebound or guarding. EXTREMITIES: No leg edema or calf tenderness. There is no cyanosis or clubbing. SKIN: No rashes. NEUROLOGICAL: No focal abnormalities. LABORATORY DATA: White blood cell count is 23.1 and hemoglobin is 11.5. The platelet count is 366. The BUN to creatinine ratio is 24 to 0.66 and the albumin is 2.3. The sodium is 146. RADIOGRAPHIC DATA: Chest x-ray shows findings consistent with multifocal pneumonia. IMPRESSION: 1. Acute respiratory failure. 2. Coronavirus disease-19 and viral pneumonia. 3. Acute kidney injury. 4. Prostatic hypertrophy. 5. Leukocytosis. 6. Tracheal deviation on x-ray of unclear etiology. PLAN: 1. Complete dexamethasone. 2. Lovenox. 3. Broaden antibiotics to cover for superimposed bacterial pneumonia. 4. Continue to monitor creatinine and blood counts. Dixon Merrill MD [facility]/MODL /[id number]
[2019-09-11] MEDS: DEXAMETHASONE PHOS 4MG/ML 6 MG in SODIUM CHLORIDE 0.9% 50ML 50 ML IV SCH (14:00)
[2019-09-11] MEDS: HYDROCODONE/APAP 5MG-325MG TAB PO PRN (15:40)
[2019-09-11] MEDS: SERTRALINE HCL 50 MG TAB PO SCH (21:03)
[2019-09-11] MEDS: TAMSULOSIN HCL 0.4 MG CAP PO SCH (21:03)
[2019-09-12] VITALS (17 sets, daily range): BP systolic 145–167; BP diastolic 66–75
[2019-09-12] MEDS: ACETAMINOPHEN 325 MG TAB PO PRN (03:18)
[2019-09-12 05:52] LABS: BASOPHILS # (AUTO) 0.1 (0.0-0.1); BASOPHILS % 0.4 % (0.0-1.0); HEMATOCRIT 34.6 % (38.2-49.6); LYMPHOCYTES # (AUTO) 0.7 (1.0-3.2); LYMPHOCYTES % 3.2 % (18.0-39.1); MEAN CORPUSCULAR HEMOGLOBIN 26.2 pg (28-32); MEAN CORPUSCULAR HGB CONC 31.8 g/dL (31-35); MEAN CORPUSCULAR VOLUME 82.4 fL (81-99); MONOCYTES % 4.6 % (4.4-11.3); NEUTROPHILS # (AUTO) 19.4 (2.1-6.9); NEUTROPHILS % 87.7 % (38.7-80.0); PLATELET COUNT 358 x10e3/uL (140-360); RED CELL DISTRIBUTION WIDTH 13.9 % (11.7-14.4)
[2019-09-12] MEDS: NIFEDIPINE CR 30 MG TAB PO SCH (06:00)
[2019-09-12 06:11] LABS: ALANINE AMINOTRANSFERASE 101 IU/L (0-55); ALBUMIN 2.2 g/dL (3.5-5.0); ALBUMIN/GLOBULIN RATIO 0.6 (0.8-2.0); ALKALINE PHOSPHATASE 162 IU/L (40-150); BLOOD UREA NITROGEN 23 mg/dL (7-26); BUN/CREATININE RATIO 34 (6-25); CALCIUM 8.3 mg/dL (8.4-10.2); CARBON DIOXIDE 24 mmol/L (22-29); CHLORIDE 110 mmol/L (98-107); CREATININE, SERUM 0.67 mg/dL (0.72-1.25); EST GLOMERULAR FILTRATION RATE > 60 ML/MIN (60-); GLUCOSE 112 mg/dL (74-118); SODIUM 142 mmol/L (136-145)
[2019-09-12] MEDS: ZINC SULFATE 220 MG CAP PO SCH ×2 (09:00→16:36)
--- NOTE | 2019-09-12 09:56 | Diagnostic Imaging Report ---
EXAMINATION: CHEST SINGLE (PORTABLE) INDICATION: viral pneumonia COMPARISON: Multiple prior chest x-ray examinations most recent dated 09/10/2019. FINDINGS: AP view TUBES and LINES: None. LUNGS/PLEURA: There are increased bilateral patchy opacities compatible with worsening pneumonia. There is increased bibasilar opacities which could be due to effusion or atelectasis. HEART AND MEDIASTINUM: The cardiomediastinal silhouette is unremarkable. BONES AND SOFT TISSUES: No acute osseous lesion. Soft tissues are unremarkable. UPPER ABDOMEN: No free air under the diaphragm. IMPRESSION: Increased bilateral patchy opacities compatible with worsening pneumonia. Increased bibasilar opacities which could be due to effusion or atelectasis. Signed by: Pj Trinidad MD on 09/12/2019 9:53 AM
[2019-09-12] MEDS: CHOLECALCIFEROL 400 UNIT TAB PO SCH (10:20)
[2019-09-12] MEDS: ASCORBIC ACID 500 MG TAB PO SCH ×2 (10:20→17:00)
[2019-09-12] MEDS: DEXAMETHASONE PHOS 4MG/ML 6 MG in SODIUM CHLORIDE 0.9% 50ML 50 ML IV SCH (10:20)
[2019-09-12] MEDS: LISINOPRIL 2.5 MG TAB PO SCH ×2 (10:20→17:00)
[2019-09-12] MEDS: ENOXAPARIN SOD INJ 40 MG/0.4 ML SYR SC SCH ×2 (10:21→21:40)
[2019-09-12] MEDS: DEXMEDETOMIDINE 200MCG/NS 50ML 50 ML IV PRN (11:36)
--- NOTE | 2019-09-12 12:39 | Progress Note ---
DATE: SUBJECTIVE: The patient complains of some increased phlegm production. He has more dyspnea. His Vapotherm was increased to 40 L. He is also on 100% FiO2. PHYSICAL EXAMINATION: VITAL SIGNS: Blood pressure is 161/73 and saturation is 95%. Respiratory rate is in the mid 20s. HEENT: No facial swelling or erythema. LYMPHATIC: No submandibular, cervical, or supraclavicular adenopathy. CARDIAC: Reveals a regular rate and rhythm with normal S1, S2. LUNGS: Auscultation of lungs reveals rhonchorous breath sounds bilaterally. There is no wheezing. ABDOMEN: Soft, nontender. There is no rebound or guarding. EXTREMITIES: No leg or calf tenderness. There is no cyanosis or clubbing. SKIN: No rashes. NEUROLOGICAL: No focal abnormalities. LABORATORY DATA: White blood cell count is still elevated at 22.1 and hemoglobin is 11. The platelet count is 358. The BUN to creatinine ratio is normal. The other electrolytes are within normal limits. The albumin is 2.2. RADIOGRAPHIC DATA: Chest x-ray shows worsening bilateral opacities. IMPRESSION: 1. Acute respiratory failure. 2. Coronavirus disease-19 infection and viral pneumonia with superimposed bacterial infection. 3. Acute kidney injury. 4. Prostatic hypertrophy. 5. Tracheal deviation on x-ray of unclear etiology. PLAN: 1. Continue Vapotherm and place the patient in prone position. 2. Lovenox. 3. Repeat ABG. 4. Precedex. 5. Broad-spectrum antibiotics to cover for superimposed bacterial pneumonia. Dixon Merrill MD [facility]/ROMULOL /[id number]
--- NOTE | 2019-09-12 14:35 | NUR ---
Nutrition Screen Note RD Recommendation for Physician: -Continue cardiac diet as ordered -If PO intake <50% of meals, offer Ensure Enlive nutrition supplement Plan of Care: RD following, monitoring for tolerance and adequacy Nutrition reason for involvement: Length of stay Primary Diagnose(s): COVID-19, hypoxia PMH: HTN, enlarged prostate s/p TURP Ht: 64 in Wt:145 lb BMI: 24.9 kg/m2 IBW:[address] Assessment: (09/12/19) Chart reviewed. Labs and meds reviewed. Pt is a 79 year old male admitted with COVID-19 and hypoxia. Unable to speak to pt due to isolation precautions. Meal intake is not recorded at this time and there are no previous weights in chart. If PO intake is <50% of meals, offer Ensure Enlive. Will continue to monitor. Current Diet: cardiac Malnutrition Evaluation (09/12/19) Unable to assess. Will re-evaluate at follow-up as appropriate. Diet Education Needs Assessment: RD is available for diet education as needed Nutrition Care Level: low Signed: Venus Kerr, S[place], LD
[2019-09-12 17:02] LABS: ABG PCO2 32 mmHg (35-45); ABG PH 7.49 (7.35-7.45)
[2019-09-12 17:03] LABS: ABG HCO3 25 mmol/L (22-26); ABG PO2 86 mmHg (80-105)
[2019-09-12] MEDS: TAMSULOSIN HCL 0.4 MG CAP PO SCH (21:40)
[2019-09-12] MEDS: SERTRALINE HCL 50 MG TAB PO SCH (21:40)
[2019-09-12] MEDS: MEROPENEM 500MG/ NS 50ML 50 ML IV SCH (23:49)
[2019-09-13] VITALS (23 sets, daily range): BP systolic 118–170; BP diastolic 55–93
[2019-09-13 06:45] LABS: BASOPHILS # (AUTO) 0.1 (0.0-0.1); BASOPHILS % 0.3 % (0.0-1.0); HEMATOCRIT 37.7 % (38.2-49.6); LYMPHOCYTES # (AUTO) 0.7 (1.0-3.2); LYMPHOCYTES % 2.6 % (18.0-39.1); MEAN CORPUSCULAR HEMOGLOBIN 26.3 pg (28-32); MEAN CORPUSCULAR HGB CONC 31.8 g/dL (31-35); MEAN CORPUSCULAR VOLUME 82.5 fL (81-99); MONOCYTES # (AUTO) 1.2 (0.2-0.8); MONOCYTES % 4.6 % (4.4-11.3); NEUTROPHILS # (AUTO) 23.7 (2.1-6.9); NEUTROPHILS % 89.4 % (38.7-80.0); PLATELET COUNT 388 x10e3/uL (140-360); RED BLOOD COUNT 4.57 x10e6/uL (4.3-5.7); RED CELL DISTRIBUTION WIDTH 13.9 % (11.7-14.4)
[2019-09-13] MEDS: NIFEDIPINE CR 30 MG TAB PO SCH (06:45)
[2019-09-13] MEDS: ACETAMINOPHEN 325 MG TAB PO PRN ×2 (06:45→21:15)
[2019-09-13] MEDS: MEROPENEM 500MG/ NS 50ML 50 ML IV SCH ×3 (06:45→21:15)
[2019-09-13 07:10] LABS: ALANINE AMINOTRANSFERASE 83 IU/L (0-55); ALBUMIN 2.1 g/dL (3.5-5.0); ALBUMIN/GLOBULIN RATIO 0.5 (0.8-2.0); ALKALINE PHOSPHATASE 178 IU/L (40-150); ANION GAP 12.3 mmol/L (8-16); BLOOD UREA NITROGEN 24 mg/dL (7-26); BUN/CREATININE RATIO 35 (6-25); CALCIUM 8.8 mg/dL (8.4-10.2); CARBON DIOXIDE 25 mmol/L (22-29); CHLORIDE 109 mmol/L (98-107); CREATININE, SERUM 0.68 mg/dL (0.72-1.25); EST GLOMERULAR FILTRATION RATE > 60 ML/MIN (60-); GLUCOSE 102 mg/dL (74-118); POTASSIUM 4.3 mmol/L (3.5-5.1); SODIUM 142 mmol/L (136-145)
--- NOTE | 2019-09-13 08:26 | Diagnostic Imaging Report ---
Examination: Single AP view of the chest. COMPARISON: 09/12/2019 INDICATION: Pneumonia DISCUSSION: Lines/tubes: None. Lungs: Progressive airspace consolidations. Pleura: There is no pleural effusion or pneumothorax. Heart and mediastinum: The heart and the mediastinum are unremarkable. Bones and soft tissues: No acute bony abnormalities. IMPRESSION: 1. Progressive airspace consolidations bilaterally Signed by: Dr. Solomon Johns M.D. on 09/13/2019 8:23 AM
--- NOTE | 2019-09-13 08:27 | Diagnostic Imaging Report ---
Examination: Abdominal radiograph COMPARISON: None. INDICATION: Pneumonia DISCUSSION: Nonobstructive bowel gas pattern. No visualized free air. No mass effect. IMPRESSION: Nonobstructive bowel gas pattern. Signed by: Dr. Solomon Johns M.D. on 09/13/2019 8:24 AM
[2019-09-13] MEDS: LISINOPRIL 2.5 MG TAB PO SCH ×2 (08:31→16:06)
[2019-09-13] MEDS: DEXAMETHASONE PHOS 4MG/ML 6 MG in SODIUM CHLORIDE 0.9% 50ML 50 ML IV SCH (08:31)
[2019-09-13] MEDS: ZINC SULFATE 220 MG CAP PO SCH ×2 (08:32→16:06)
[2019-09-13] MEDS: ASCORBIC ACID 500 MG TAB PO SCH ×2 (08:32→16:06)
[2019-09-13] MEDS: CHOLECALCIFEROL 400 UNIT TAB PO SCH (08:32)
[2019-09-13] MEDS: ENOXAPARIN SOD INJ 40 MG/0.4 ML SYR SC SCH ×2 (08:32→21:40)
[2019-09-13 09:24] LABS: BAND NEUTROPHILS % (MANUAL) 4 %; LYMPHOCYTES % (MANUAL) 2 % (19-48); MONOCYTES % (MANUAL) 3 % (3.4-9.0); NEUTROPHILS % (MANUAL) 91 % (40-74)
[2019-09-13] MEDS: DEXMEDETOMIDINE 200MCG/NS 50ML 50 ML IV PRN ×2 (11:31→23:00)
[2019-09-13] MEDS ORDERED: SODIUM CHLORIDE 0.45% 500 ML IV ONE (13:00)
--- NOTE | 2019-09-13 13:08 | Progress Note ---
DATE: Pulmonary Critical Care Progress Note SUBJECTIVE: The patient is having difficulty sleeping. His Precedex was increased. This morning, he is sleepy, but arousable. He is saturating in the low 90s on Vapotherm with 40 L and 100%. He is non-rebreather superimposed over the Vapotherm. OBJECTIVE: HEENT: Shows no facial swelling or erythema. LYMPHATIC: Shows no submandibular, cervical, or supraclavicular adenopathy. CARDIAC: Reveals regular rate and rhythm with normal S1 and S2. LUNGS: Auscultation of lungs reveals rhonchorous breath sounds bilaterally. There is no wheezing. ABDOMEN: Soft and nontender. There is no rebound or guarding. EXTREMITIES: Shows no leg edema or calf tenderness. There is no cyanosis or clubbing. SKIN: Shows no rashes. NEUROLOGICAL: Shows no focal abnormalities. LABORATORY DATA: White blood cell count is 26.5 and the hemoglobin is 12. The platelet count is 338. The BUN to creatinine ratio is 24 to 0.68. The albumin is 2.1. AST and ALT are normal. RADIOGRAPHIC DATA: Chest x-ray shows progressive airspace disease. IMPRESSION: 1. Acute respiratory failure. 2. COVID-19 and viral pneumonia. 3. Superimposed bacterial infection. 4. Acute kidney injury. 5. Prostatic hypertrophy. PLAN: 1. Stat ABG. 2. Continue Precedex. 3. Place the patient in the prone position if possible. 4. Continue Vapotherm. 5. Continue broad-spectrum antibiotics. Dixon Merrill MD [facility]/MODL /[id number]
[2019-09-13] MEDS: GUAIFENESIN/CODEINE 10 ML CUP PO PRN (20:45)
[2019-09-13] MEDS: TAMSULOSIN HCL 0.4 MG CAP PO SCH (21:15)
[2019-09-13] MEDS: SERTRALINE HCL 50 MG TAB PO SCH (21:15)
[2019-09-14] VITALS (22 sets, daily range): BP systolic 14–156; BP diastolic 47–74
[2019-09-14] MEDS: DEXMEDETOMIDINE 200MCG/NS 50ML 50 ML IV PRN (03:14)
[2019-09-14] MEDS: GUAIFENESIN/CODEINE 10 ML CUP PO PRN (04:52)
[2019-09-14 05:45] LABS: BASOPHILS # (AUTO) 0.1 (0.0-0.1); BASOPHILS % 0.2 % (0.0-1.0); HEMATOCRIT 37.1 % (38.2-49.6); HEMOGLOBIN 12.2 g/dL (14.0-18.0); LYMPHOCYTES # (AUTO) 0.3 (1.0-3.2); MEAN CORPUSCULAR HEMOGLOBIN 27.6 pg (28-32); MEAN CORPUSCULAR HGB CONC 32.9 g/dL (31-35); MEAN CORPUSCULAR VOLUME 83.9 fL (81-99); MONOCYTES # (AUTO) 0.8 (0.2-0.8); MONOCYTES % 2.5 % (4.4-11.3); NEUTROPHILS # (AUTO) 30.6 (2.1-6.9); NEUTROPHILS % 94.4 % (38.7-80.0); PLATELET COUNT 321 x10e3/uL (140-360); RED BLOOD COUNT 4.42 x10e6/uL (4.3-5.7); RED CELL DISTRIBUTION WIDTH 13.9 % (11.7-14.4)
[2019-09-14] MEDS: NIFEDIPINE CR 30 MG TAB PO SCH (06:00)
[2019-09-14] MEDS: MEROPENEM 500MG/ NS 50ML 50 ML IV SCH ×4 (06:00→22:39)
[2019-09-14 06:03] LABS: ALANINE AMINOTRANSFERASE 54 IU/L (0-55); ALBUMIN 2.1 g/dL (3.5-5.0); ALBUMIN/GLOBULIN RATIO 0.5 (0.8-2.0); ALKALINE PHOSPHATASE 198 IU/L (40-150); ANION GAP 14.2 mmol/L (8-16); BLOOD UREA NITROGEN 27 mg/dL (7-26); BUN/CREATININE RATIO 40 (6-25); CALCIUM 8.5 mg/dL (8.4-10.2); CARBON DIOXIDE 23 mmol/L (22-29); CHLORIDE 111 mmol/L (98-107); CREATININE, SERUM 0.67 mg/dL (0.72-1.25); EST GLOMERULAR FILTRATION RATE > 60 ML/MIN (60-); GLUCOSE 106 mg/dL (74-118); POTASSIUM 4.2 mmol/L (3.5-5.1); SODIUM 144 mmol/L (136-145)
[2019-09-14] MEDS: ZINC SULFATE 220 MG CAP PO SCH ×2 (08:08→17:00)
[2019-09-14] MEDS: ASCORBIC ACID 500 MG TAB PO SCH ×2 (08:15→17:21)
[2019-09-14] MEDS: LISINOPRIL 2.5 MG TAB PO SCH ×2 (08:15→17:22)
[2019-09-14] MEDS: ENOXAPARIN SOD INJ 40 MG/0.4 ML SYR SC SCH ×2 (08:16→20:39)
[2019-09-14] MEDS: CHOLECALCIFEROL 400 UNIT TAB PO SCH (08:16)
--- NOTE | 2019-09-14 08:20 | NUR ---
GAVE PACKET OF INFORMATION WITH COMMUNITY [employer] FOR ASSISTANCE WITH LOW TO NO INCOME TO PATIENT. RESOURCES THAT PATIENT MAY BE ABLE TO FOLLOW UP UPON DISCHARGE. PT EDUCATED ON EACH RESOURCE AND UNDERSTANDING HOW TO FOLLOW UP TO SEE IF QUALIFIED FOR EACH RESOURCE. Addendum: 09/14/19 at 0821 by Gabriela Hutchison CM INCORRECT PT, ENTERED IN ERROR
[2019-09-14 08:36] LABS: LYMPHOCYTES % (MANUAL) 2 % (19-48); MONOCYTES % (MANUAL) 2 % (3.4-9.0); NEUTROPHILS % (MANUAL) 96 % (40-74); PLATELET ESTIMATE ADEQUATE; PLATELET MORPHOLOGY COMMENT NORMAL; RBC MORPHOLOGY COMMENT NORMAL
--- NOTE | 2019-09-14 08:50 | Diagnostic Imaging Report ---
EXAMINATION: CHEST SINGLE (PORTABLE) INDICATION: Pneumonia COMPARISON: Multiple prior chest radiograph, most recently 09/13/2019 FINDINGS: LINES/TUBES:EKG leads overlie the chest. LUNGS:The lung volumes are low. Unchanged diffuse bilateral airspace opacities. PLEURA:No pleural effusion or pneumothorax. MEDIASTINUM:The cardiomediastinal silhouette appears unchanged in size and shape. BONES/SOFT TISSUES:No acute osseous injury. ABDOMEN:No free air under the diaphragm. IMPRESSION: Low lung volumes and unchanged diffuse bilateral airspace opacities consistent with known pneumonia. Signed by: Rufus Linton MD on 09/14/2019 8:47 AM
[2019-09-14] MEDS: DEXAMETHASONE PHOS 4MG/ML 6 MG in SODIUM CHLORIDE 0.9% 50ML 50 ML IV SCH (09:16)
[2019-09-14] MEDS ORDERED: LACTATED RINGER'S 1,000 ML INJ ONE (16:15)
--- NOTE | 2019-09-14 16:30 | NUR ---
PT PLACED INTO PRONE POSITION, 02 IMPROVED TO 94%, PT CONTINUES TO SAY HE IS NOT COMFORTABLE THIS RN INSTRUCTED PATIENT ON BENEFITS OF LAYING PRONE PT STATES HE WILL LAY LONG POSSIBLE
--- NOTE | 2019-09-14 17:15 | Progress Note ---
DATE: SUBJECTIVE: The patient is reporting some increased congestion. He is not having any fevers. He has no chest pain. PHYSICAL EXAMINATION: VITAL SIGNS: The patient is afebrile. The blood pressure is 128/74 and saturation is 94%. He is on Vapotherm at 40 L and his pulse is 86. HEENT: Shows no facial swelling or erythema. CARDIAC: Reveals regular rate and rhythm with normal S1 and S2. LUNGS: Auscultation of lungs reveals rhonchorous breath sounds bilaterally. There is no wheezing. ABDOMEN: Soft and nontender. There is no rebound or guarding. EXTREMITIES: Shows no leg edema or calf tenderness. There is no cyanosis or clubbing. SKIN: Shows no rashes. NEUROLOGICAL: Shows no focal abnormalities. LABORATORY DATA: BUN to creatinine ratio is normal. The other electrolytes are within normal limits. Albumin is 2.1. White blood cell count is 32.4 and the hemoglobin 12.2. The platelet count is 321. RADIOGRAPHIC DATA: Bilateral infiltrates. IMPRESSION: 1. Acute respiratory failure. 2. COVID-19 and viral pneumonia. 3. Superimposed bacterial infection with bacterial pneumonia. 4. Acute kidney injury. 5. Dehydration. 6. Prostatic hypertrophy. PLAN: 1. Intravenous fluids. 2. Decrease Precedex. 3. Continue Vapotherm. 4. Continue Merrem and Zyvox. Dixon Merrill MD [facility]/MODL /[id number]
--- NOTE | 2019-09-14 17:20 | NUR ---
PT STATES HE CAN NOT LAY PRONE ANYMORE IS BECOMING MORE ANXIOUS, PT TURNED BACK TO SUPINE POSITION
[2019-09-14] MEDS ORDERED: LINEZOLID 600 MG/D5W 300ML 300 ML IV SCH (18:00)
[2019-09-14] MEDS: SERTRALINE HCL 50 MG TAB PO SCH (20:39)
[2019-09-14] MEDS: LINEZOLID 600 MG/D5W 300ML 300 ML IV SCH (20:39)
[2019-09-14] MEDS: TAMSULOSIN HCL 0.4 MG CAP PO SCH (20:39)
[2019-09-15] VITALS (23 sets, daily range): BP systolic 99–171; BP diastolic 48–83
[2019-09-15] MEDS: DEXMEDETOMIDINE 200MCG/NS 50ML 50 ML IV PRN (01:08)
[2019-09-15 05:40] LABS: BASOPHILS # (AUTO) 0.1 (0.0-0.1); BASOPHILS % 0.3 % (0.0-1.0); HEMATOCRIT 39.1 % (38.2-49.6); HEMOGLOBIN 12.4 g/dL (14.0-18.0); LYMPHOCYTES # (AUTO) 0.6 (1.0-3.2); MEAN CORPUSCULAR HEMOGLOBIN 26.2 pg (28-32); MEAN CORPUSCULAR HGB CONC 31.7 g/dL (31-35); MEAN CORPUSCULAR VOLUME 82.7 fL (81-99); MONOCYTES # (AUTO) 1.5 (0.2-0.8); MONOCYTES % 4.9 % (4.4-11.3); NEUTROPHILS # (AUTO) 27.5 (2.1-6.9); NEUTROPHILS % 91.1 % (38.7-80.0); PLATELET COUNT 291 x10e3/uL (140-360); RED BLOOD COUNT 4.73 x10e6/uL (4.3-5.7); RED CELL DISTRIBUTION WIDTH 13.9 % (11.7-14.4)
[2019-09-15] MEDS: NIFEDIPINE CR 30 MG TAB PO SCH ×2 (06:00→06:47)
[2019-09-15 06:03] LABS: ALANINE AMINOTRANSFERASE 40 IU/L (0-55); ALBUMIN 1.9 g/dL (3.5-5.0); ALBUMIN/GLOBULIN RATIO 0.4 (0.8-2.0); ALKALINE PHOSPHATASE 198 IU/L (40-150); ANION GAP 12.4 mmol/L (8-16); BLOOD UREA NITROGEN 33 mg/dL (7-26); BUN/CREATININE RATIO 49 (6-25); CALCIUM 8.6 mg/dL (8.4-10.2); CARBON DIOXIDE 24 mmol/L (22-29); CHLORIDE 111 mmol/L (98-107); CREATININE, SERUM 0.67 mg/dL (0.72-1.25); EST GLOMERULAR FILTRATION RATE > 60 ML/MIN (60-); GLUCOSE 134 mg/dL (74-118); POTASSIUM 4.4 mmol/L (3.5-5.1); SODIUM 143 mmol/L (136-145)
[2019-09-15 07:35] LABS: LYMPHOCYTES % (MANUAL) 2 % (19-48); MONOCYTES % (MANUAL) 2 % (3.4-9.0); NEUTROPHILS % (MANUAL) 96 % (40-74); PLATELET ESTIMATE ADEQUATE; PLATELET MORPHOLOGY COMMENT NORMAL; RBC MORPHOLOGY COMMENT NORMAL
--- NOTE | 2019-09-15 08:29 | Diagnostic Imaging Report ---
Examination: Single AP view of the chest. COMPARISON: AP chest 09/14/2019 INDICATION: Respiratory failure IMPRESSION: 1. Lines and Tubes: None 2. No interval change in diffuse bilateral interstitial and alveolar opacities consistent with pneumonia. 3. Cardiomediastinal silhouette is stable. Pulmonary vasculature is obscured. 4. No acute bony abnormalities. Signed by: Dr. Avni Robles M.D. on 09/15/2019 8:25 AM
[2019-09-15] MEDS: LINEZOLID 600 MG/D5W 300ML 300 ML IV SCH ×2 (08:46→21:30)
--- NOTE | 2019-09-15 08:52 | Operative Report ---
DATE OF PROCEDURE: SURGEON: Dixon Merrill MD PROCEDURE: Endotracheal intubation with GlideScope. PREOPERATIVE DIAGNOSIS: Respiratory failure. POSTOPERATIVE DIAGNOSIS: Respiratory failure. CONSENT: Consent was obtained from the patient. MEDICATIONS: Versed 1 mg, etomidate 20 mg, and succinylcholine 100 mg. PROCEDURE IN DETAIL: The patient was placed in a supine position. He was preoxygenated with 100% oxygen. His saturations were in the low 80s. He received etomidate and succinylcholine. He required some brief Ambu bag to increase his saturations into the low 90s. A 3.0 Mac blade and GlideScope were used to visualize the glottis. An 8.0 endotracheal tube was passed on the first attempt. There was good CO2 return. There were equal breath sounds bilaterally. ESTIMATED BLOOD LOSS: None. COMPLICATIONS: None. Dixon Merrill MD [facility]/MODL /[id number]
[2019-09-15] MEDS: ASCORBIC ACID 500 MG TAB PO SCH ×2 (09:00→16:31)
[2019-09-15] MEDS: ZINC SULFATE 220 MG CAP PO SCH ×2 (09:00→16:31)
[2019-09-15] MEDS: LISINOPRIL 2.5 MG TAB PO SCH ×2 (09:00→16:30)
[2019-09-15] MEDS: CHOLECALCIFEROL 400 UNIT TAB PO SCH (09:00)
--- NOTE | 2019-09-15 09:02 | Progress Note ---
DATE: Pulmonary/Critical Care Progress Note SUBJECTIVE: The patient is having more difficulty breathing this morning with desaturations. He required endotracheal intubation. He is not having any nausea or vomiting. He has no fever. PHYSICAL EXAMINATION: VITAL SIGNS: The patient is afebrile. The blood pressure is 160/80, saturation is now in the mid 90s. He is on a PRVC at a rate of 26 with a tidal volume of 370 and a PEEP of 16. His FiO2 is set at 100%. HEENT: Shows no facial swelling or erythema. CARDIAC: Reveals regular rate and rhythm with normal S1 and S2. There are no murmurs or rubs heard. LUNGS: Auscultation of lungs reveals crackles and rhonchi on both lung amaya. ABDOMEN: Soft, nontender. There is no rebound or guarding. EXTREMITIES: Shows no leg edema or calf tenderness. There is no cyanosis or clubbing. SKIN: Shows no rashes. NEUROLOGICAL: Shows no focal abnormalities. The patient is currently sedated on Versed and fentanyl. LABORATORY DATA: White blood cell count is 30 and hemoglobin is 12.4. The platelet count is 291. The BUN to creatinine ratio is 33 to 0.67. The other electrolytes are within normal limits. The albumin is 1.9. RADIOGRAPHIC DATA: Chest x-ray shows bilateral infiltrates. IMPRESSION: 1. Bacterial pneumonia with severe sepsis, superimposed on coronavirus disease-2019 infection. 2. Coronavirus disease-2019 viral pneumonia. 3. Acute respiratory distress syndrome. 4. Benign prostatic hypertrophy. 5. Acute kidney injury. PLAN: 1. Continue current ventilator settings and repeat ABG. 2. Begin enteral feedings. 3. Continue current antibiotics. 4. Continue Lovenox. 5. Continue to monitor blood counts and creatinine. 6. PICC line placement. 7. Case discussed with nursing staff, Respiratory, family, Infectious Disease and administration. Greater than 35 minutes in direct critical care time. Dixon Merrill MD [facility]/MODL /[id number]
[2019-09-15] MEDS: DEXAMETHASONE SOD PHOS INJ 4 MG/ML VIAL IV SCH (09:13)
[2019-09-15] MEDS: ENOXAPARIN SOD INJ 40 MG/0.4 ML SYR SC SCH ×2 (09:13→21:30)
--- NOTE | 2019-09-15 09:38 | Diagnostic Imaging Report ---
EXAMINATION: CHEST SINGLE (PORTABLE), ABDOMEN-1VIEW (KUB) INDICATION: Intubation COMPARISON: Chest radiograph of 09/14/2019 FINDINGS: LINES/TUBES:Interval intubation with endotracheal tube terminating 4 cm above the josé. Interval placement of feeding tube with tip and side-port in the stomach. LUNGS:The lungs are moderately inflated. Unchanged bilateral patchy airspace opacities PLEURA:No pleural effusion or pneumothorax. MEDIASTINUM:The cardiomediastinal silhouette appears unchanged in size and shape. BONES/SOFT TISSUES:No acute osseous injury. ABDOMEN:No free air under the diaphragm. IMPRESSION: Endotracheal tube and enteric tube in good position. Unchanged bilateral patchy airspace opacities consistent with known pneumonia. Signed by: Rufus Linton MD on 09/15/2019 9:34 AM
[2019-09-15] MEDS ORDERED: VECURONIUM BROMIDE FOR INJ 20 MG VIAL ONE (09:57)
[2019-09-15 10:55] LABS: ABG HCO3 24 mmol/L (22-26); ABG PCO2 50 mmHg (35-45); ABG PO2 85 mmHg (80-105)
--- NOTE | 2019-09-15 13:19 | Progress Note ---
DATE: ADDENDUM: I spoke to the daughter, power of deputy county attorney, Kizzy. She also discussed the situation with her family. The family believes that the patient did not want heroic measures. Consequently, he will not receive CPR or defibrillation. We are making arrangements to move him out of the Intensive Care Unit to private room. He will be disconnected from the ventilator and we will try and make arrangements for family visitation. MD TARUN Viera/MODL /[id number]
[2019-09-15] MEDS: MEROPENEM 500MG/ NS 50ML 50 ML IV SCH ×2 (13:39→21:30)
--- NOTE | 2019-09-15 15:40 | Progress Note ---
DATE: SUBJECTIVE: Mr. Avendano was currently a DNR. Events noted. The patient is on a vent. This is day #9 of admission while he is afebrile. He remains on PRVC rate 26, tidal volume 370, PEEP of 16, FiO2 is 100%. OBJECTIVE: HEENT: Normocephalic. NECK: Supple. CHEST: Crackles. IMPRESSION: COVID-19, superimposed bacterial pneumonia, respiratory failure, benign prostatic hypertrophy, acute kidney injury, currently DNR. There is discussion for him to be intubated. Agree with the above. His prognosis is poor. MD CHENG Brooks/MODL /[id number]
--- NOTE | 2019-09-15 17:05 | NUR ---
SPOKE WITH PT VALERIY TYLER AT LENGTH MULTIPLE TIMES REGARDING POC AND CODE STATUS ALL QUESTIONS ANSWERED, PHONE NUMBER OF POA GIVEN TO MANAGEMENT TO DISCUSS VISITATION FOR PATIENT
--- NOTE | 2019-09-15 19:55 | NUR ---
Pt extubated at this time by this RN and Gerber RT to NRB at 15L. Transported to ICU 192 and bedside report given to lebron Love RN.
--- NOTE | 2019-09-15 20:15 | NUR ---
RECEIVED FROM [facility] ICU - RECEIVING O2 PER NRBM AT 15 L/MIN
--- NOTE | 2019-09-15 20:25 | NUR ---
SPOKE WITH VALERIY, PATIENTS DAUGHTER, INFORMED HER THAT PATIENT WAS READY FOR VISITATION PER EARLIER ARRANGEMENTS MADE WITH ADMINISTRATION
[2019-09-15] MEDS: SERTRALINE HCL 50 MG TAB PO SCH (21:30)
[2019-09-15] MEDS: TAMSULOSIN HCL 0.4 MG CAP PO SCH (21:30)
--- NOTE | 2019-09-15 23:16 | NUR ---
report called to Emily DOHERTY, transferred to room 176
--- NOTE | 2019-09-15 23:23 | NUR ---
Patient arrived to unit to room 176 via bed. Patient nonrebreather, 02 sat 82%, NC at 5L applied with nonrebreather, 02 sat 94%. Herrera to bedside drainage flowing freely. No issues or concerns noted at this time. Oriented to room and environment. Will continue to monitor.
[2019-09-16] MEDS: ACETAMINOPHEN 325 MG TAB PO PRN ×2 (01:37→08:46)
[2019-09-16] MEDS ORDERED: SODIUM CHLORIDE 0.9% 250ML 250 ML ONE (04:59)
[2019-09-16 05:24] VITALS: BP 166/69
[2019-09-16] MEDS: MEROPENEM 500MG/ NS 50ML 50 ML IV SCH ×2 (05:46→14:00)
[2019-09-16 05:59] LABS: BASOPHILS # (AUTO) 0.1 (0.0-0.1); BASOPHILS % 0.3 % (0.0-1.0); HEMATOCRIT 38.8 % (38.2-49.6); HEMOGLOBIN 11.9 g/dL (14.0-18.0); LYMPHOCYTES # (AUTO) 0.5 (1.0-3.2); LYMPHOCYTES % 1.5 % (18.0-39.1); MEAN CORPUSCULAR HEMOGLOBIN 25.9 pg (28-32); MEAN CORPUSCULAR HGB CONC 30.7 g/dL (31-35); MEAN CORPUSCULAR VOLUME 84.5 fL (81-99); MONOCYTES # (AUTO) 1.4 (0.2-0.8); MONOCYTES % 4.1 % (4.4-11.3); NEUTROPHILS % 92.3 % (38.7-80.0); PLATELET COUNT 255 x10e3/uL (140-360); RED BLOOD COUNT 4.59 x10e6/uL (4.3-5.7); RED CELL DISTRIBUTION WIDTH 14.1 % (11.7-14.4)
[2019-09-16 06:15] LABS: ALANINE AMINOTRANSFERASE 38 IU/L (0-55); ALBUMIN 1.9 g/dL (3.5-5.0); ALBUMIN/GLOBULIN RATIO 0.4 (0.8-2.0); ALKALINE PHOSPHATASE 208 IU/L (40-150); ANION GAP 13.7 mmol/L (8-16); BLOOD UREA NITROGEN 29 mg/dL (7-26); BUN/CREATININE RATIO 47 (6-25); CALCIUM 8.6 mg/dL (8.4-10.2); CARBON DIOXIDE 21 mmol/L (22-29); CHLORIDE 113 mmol/L (98-107); CREATININE, SERUM 0.62 mg/dL (0.72-1.25); EST GLOMERULAR FILTRATION RATE > 60 ML/MIN (60-); GLUCOSE 127 mg/dL (74-118); POTASSIUM 4.7 mmol/L (3.5-5.1); SODIUM 143 mmol/L (136-145)
--- NOTE | 2019-09-16 07:29 | Diagnostic Imaging Report ---
Examination: Single AP view of the chest. COMPARISON: Portable chest 09/15/2019 INDICATION: Follow-up respiratory failure IMPRESSION: 1. Lines and Tubes: Previously visualized endotracheal tube has been removed. Unchanged enteric tube. 2. Slight improvement in aeration of the right lung. There are persistent bilateral interstitial and alveolar opacities, now worse in the left lobe. No effusion. 3. Cardiomediastinal silhouette is normal. Pulmonary vasculature is normal. 4. No acute bony abnormalities. Signed by: Dr. Avni Robles M.D. on 09/16/2019 7:26 AM
[2019-09-16 08:00] VITALS: BP 181/75
[2019-09-16 08:27] LABS: BAND NEUTROPHILS % (MANUAL) 1 %; LYMPHOCYTES % (MANUAL) 2 % (19-48); MONOCYTES % (MANUAL) 3 % (3.4-9.0); MYELOCYTES % (MANUAL) 1 % (0-0); NEUTROPHILS % (MANUAL) 93 % (40-74); PLATELET ESTIMATE ADEQUATE; PLATELET MORPHOLOGY COMMENT RARE EDTA CLUMPING; RBC MORPHOLOGY COMMENT NORMAL
[2019-09-16] MEDS: LINEZOLID 600 MG/D5W 300ML 300 ML IV SCH (08:43)
[2019-09-16] MEDS: DEXAMETHASONE SOD PHOS INJ 4 MG/ML VIAL IV SCH (08:43)
[2019-09-16] MEDS: LISINOPRIL 2.5 MG TAB PO SCH ×2 (08:44→16:59)
[2019-09-16] MEDS: CHOLECALCIFEROL 400 UNIT TAB PO SCH (08:44)
[2019-09-16] MEDS: ASCORBIC ACID 500 MG TAB PO SCH ×2 (08:44→16:59)
[2019-09-16] MEDS: ZINC SULFATE 220 MG CAP PO SCH ×2 (08:44→16:59)
[2019-09-16] MEDS: ENOXAPARIN SOD INJ 40 MG/0.4 ML SYR SC SCH (08:44)
[2019-09-16] MEDS ORDERED: LORAZEPAM INJ 2 MG/ML VIAL IV PRN ×3 (08:45→15:45)
[2019-09-16] MEDS: HYDRALAZINE HCL 20 MG/ML VIAL IV PRN ×2 (08:46→14:00)
[2019-09-16 08:52] VITALS: BP 181/75
[2019-09-16] MEDS: MORPHINE SULFATE INJ 4 MG/ML INJ 1ML IV PRN ×3 (10:28→15:39)
[2019-09-16] MEDS: NYSTATIN SUSPENSION 5 ML UDC PO SCH ×2 (10:30→14:00)
[2019-09-16] MEDS ORDERED: FLUCONAZOLE 100 MG TAB PO ONE (10:30)
[2019-09-16 11:48] VITALS: BP 177/77
[2019-09-16] MEDS ORDERED: MORPHINE SULFATE 2 MG/ML SYR 1ML IV PRN (15:45)
--- NOTE | 2019-09-16 15:50 | NUR ---
CALLED DAUGHTER MIGUELITO TO GET CHOICE FOR HOSPICE, LEFT MESSAGE TO RETURN CALL.
[2019-09-16 16:04] VITALS: BP 164/70
--- NOTE | 2019-09-16 16:06 | NUR ---
GOT APPROVAL FROM DAUGHTER FOR [facility], CONTACTED REP AND LET KNOW DAUGHTER WANTS HOME TONIGHT.
--- NOTE | 2019-09-16 17:15 | Progress Note ---
DATE: SUBJECTIVE: The patient is now on high-flow nasal cannula. He is not having fevers. His saturation is 92%. PHYSICAL EXAMINATION: VITAL SIGNS: Blood pressure is 164/70, pulse is 94. The patient is afebrile. CARDIAC: Regular rate and rhythm with normal S1, S2. LUNGS: Auscultation of lungs reveals rhonchorous breath sounds bilaterally. There is no wheezing. ABDOMEN: Soft, nontender. There is no rebound or guarding. EXTREMITIES: No leg edema or calf tenderness. There is no cyanosis or clubbing. SKIN: No rashes. NEUROLOGICAL: No focal abnormalities. IMPRESSION: 1. Acute respiratory failure. 2. Coronavirus disease-19 infection and viral pneumonia. 3. Benign prostatic hypertrophy. PLAN: 1. Family and the patient have opted for hospice care. 2. We will make discharge arrangements with hospice. 3. Continue oxygen. 4. Continue antibiotics. 5. Pain medications as needed. Dixon Merrill MD [facility]/ALE /[id number]
--- NOTE | 2019-09-16 19:20 | NUR ---
AT APPROXIMATELY 1850, PATIENT FOUND IN BED WITH EYES CLOSED, CYANOTIC, NASAL CANNULA AND NON-REBREATHER TO THE SIDE OF PATIENT'S FACE. SHINGLE GRADER NOTIFIED, PHYSICIAN NOTIFIED, FAMILY NOTIFIED.
--- NOTE | 2019-09-16 19:33 | NUR ---
D/C MOHAMUD CATHETER TIP INTACT. IV TO L AC D/C CATHETER TIP INTACT. [employer] DRESSING APPLIED. PROVIDED PERICARE AND PREPARED BODY FOR FAMILY.
--- NOTE | 2019-09-16 20:53 | NUR ---
[facility] will [facility] 2h[facility] before pickler helper
--- NOTE | 2019-09-16 22:30 | NUR ---
SPOKE TO [facility] AND CANCELLED [employer] DEAN. FAMILY CHANGED MIND CONCERNING ARRANGEMENTS. FAMILY SIGNED NEW CONSENT FOR RELEASE OF REMAINS. PM NURSE MADE AWARE.
--- NOTE | 2019-09-17 00:37 | NUR ---
FAMILY CHOOSE DIFFERENT HOME. SPOKE TO PRICILA WITH [facility] AND MADE ARRANGEMENTS FOR MASTER MACHINIST. WILL TAKE AROUND 2HOURS FOR MASTER MACHINIST. HOME MADE AWARE FAMILY MAY WANT AUTOPSY. ALL PERTINENT INFORMATION RELAYED TO HOME STAFF TO ARRANGE FOR MASTER MACHINIST.
[2019-09-17] MEDS ORDERED: FLUCONAZOLE 100 MG TAB PO SCH (09:00)
== END 2019-09-17 02:52 | disposition expired | DRG 871 ==
LOC: ER 18:33 → ERHOLD 23:48 → IMCU 09-07 00:53 → COVIDICU 09-08 06:30 → ICU 09-15 20:21 → IMCU 09-15 23:07
PROVIDERS: ADMIT Internal Medicine; ATTEND Internal Medicine
PROC: 5A1935Z Respiratory Ventilation, Less than 24 Consecutive Hours (ICD-10-PCS; principal; 2019-09-15)
PROC: 0BH18EZ Insertion of Endotracheal Airway into Trachea, Via Natural or Artificial Opening Endoscopic (ICD-10-PCS; 2019-09-15)
DX: A41.89 Other specified sepsis (principal); U07.1 COVID-19; J12.89 Other viral pneumonia; J96.01 Acute respiratory failure with hypoxia; J15.9 Unspecified bacterial pneumonia; N17.9 Acute kidney failure, unspecified; Z66 Do not resuscitate; I10 Essential (primary) hypertension; N40.0 Benign prostatic hyperplasia without lower urinary tract symptoms; I16.0 Hypertensive urgency; J39.8 Other specified diseases of upper respiratory tract; R65.20 Severe sepsis without septic shock; D64.9 Anemia, unspecified
CPT/HCPCS: 36415; 36600; 71045; 74018; 80048; 80053; 82550; 82553; 82607; 82746; 82805; 82948; 83605; 83735; 83880; 84100; 84443; 84484; 85025; 85610; 85730; 87040; 93005; 93306; 94002; 99284; J0330; J0360; J0456; J0692; J0696; J1100; J1650; J2020; J2060; J2250; J2270; J3370; J3480; J7030; J7050; J7121; U0002